=== PATIENT | female | born 1940 | race Caucasian/White ===

== ENCOUNTER 2019-10-19 13:54 | Inpatient (IN) | payer MEDICARE ==
[2019-10-19] MEDS ORDERED: SODIUM CHLORIDE 0.9% 500 ML 500 ML IV STA (14:29)
[2019-10-19 14:57] LABS: Potassium 3.5 mmol/L (3.5-5.1)
[2019-10-19 14:58] LABS: Albumin 2.9 g/dL (3.5-5.0); Calcium 8.5 mg/dL (8.4-10.2); Total Bilirubin 0.7 mg/dL (0.2-1.3); Total Protein 6.2 g/dL (6.3-8.2)
[2019-10-19 14:59] LABS: Anisocytosis Slight; Basophils # (A) 0.1 k/uL (0-0.2); Basophils % (A) 0 %; Eosinophils # (A) 0.7 k/uL (0-0.7); Eosinophils % (A) 3 %; HCT 28.5 % (34.0-46.0); HGB 8.9 gm/dL (11.4-16.0); Hypochromasia Slight; Lymphocytes # (A) 1.7 k/uL (1.0-4.8); Lymphocytes % (A) 8 %; MCH 26.1 pg (25.0-35.0); MCHC 31.1 g/dL (31.0-37.0); Mean Platelet Volume 7.4; Monocytes # (A) 0.7 k/uL (0-1.0); Monocytes % (A) 3 %; Neutrophils # (A) 17.9 k/uL (1.3-7.7); Neutrophils % (A) 84 %; Platelet Count 852 k/uL (150-450); RBC 3.39 m/uL (3.80-5.40); RDW 16.9 % (11.5-15.5); WBC 21.2 k/uL (3.8-10.6)
--- NOTE | 2019-10-19 15:06 | ED ---
General Adult HPI - General Source: patient, RN notes reviewed Mode of arrival: ambulatory Limitations: no limitations <Magan Vincent - Last Filed: 10/19/19 16:39> <Flakito Stein - Last Filed: 10/19/19 17:12> - General Chief complaint: Recheck/Abnormal Lab/Rx Stated complaint: Elevated White Blood Cells - Sent by Urgent Care Time Seen by Provider: 10/19/19 14:10 - History of Present Illness Initial comments: 79-year-old female presents to the emergency room for elevated white blood cell count. Patient reports that she was getting eye surgery couple months ago and was told her blood pressure was high. She was told she needed to see a doctor for this. Patient had not seen a doctor in 50 years so went to urgent care. She had blood work done about 3 months ago that was reportedly normal. Patient went back yesterday to check her blood pressure after starting lisinopril. Patient reports that she had blood work done because she had not had an appetite. It was found that her white blood cell count was 31. Patient also reports her hemoglobin was 8.9. According to the urgent care her blood work was normal 3 months ago. Hemoglobin was 14. Patient denies any hematochezia, melena, or hematemesis. States she does not have any weakness. Her only symptom is decreased appetite.Patient has no other complaints at this time including shortness of breath, chest pain, abdominal pain, nausea or vomiting, headache, or visual changes. (Magan Vincent) - Related Data Allergies Allergy/AdvReac Type Severity Reaction Status Date / Time No Known Allergies Allergy Verified 10/19/19 14:06 Review of Systems ROS Other: All systems not noted in ROS Statement are negative. <Magan Vincent - Last Filed: 10/19/19 16:39> ROS Other: All systems not noted in ROS Statement are negative. <Flakito Stein - Last Filed: 10/19/19 17:12> ROS Statement: Those systems with pertinent positive or pertinent negative responses have been documented in the HPI. Past Medical History Past Medical History: Hypertension History of Any Multi-Drug Resistant Organisms: None Reported Past Surgical History: No Surgical Hx Reported Smoking Status: Never smoker Past Alcohol Use History: None Reported Past Drug Use History: None Reported <Magan Vincent - Last Filed: 10/19/19 16:39> General Exam Limitations: no limitations General appearance: alert, in no apparent distress Head exam: Present: atraumatic, normocephalic, normal inspection Eye exam: Present: normal appearance, PERRL, EOMI. Absent: scleral icterus, conjunctival injection, periorbital swelling ENT exam: Present: normal exam, mucous membranes moist Neck exam: Present: normal inspection, full ROM. Absent: tenderness, meningismus, lymphadenopathy Respiratory exam: Present: normal lung sounds bilaterally. Absent: respiratory distress, wheezes, rales, rhonchi, stridor Cardiovascular Exam: Present: regular rate, normal rhythm, normal heart sounds. Absent: systolic murmur, diastolic murmur, rubs, gallop, clicks GI/Abdominal exam: Present: soft, normal bowel sounds. Absent: distended, tenderness, guarding, rebound, rigid Neurological exam: Present: alert <Magan Vincent - Last Filed: 10/19/19 16:39> Course <Flakito Stein - Last Filed: 10/19/19 17:12> Vital Signs 10/19/19 10/19/19 10/19/19 13:59 15:02 15:37 Temperature 98.6 F Pulse Rate 62 114 H Respiratory 16 18 18 Rate Blood Pressure 119/65 115/65 127/70 O2 Sat by Pulse 97 97 Oximetry 10/19/19 17:07 Temperature Pulse Rate 114 H Respiratory 18 Rate Blood Pressure 127/66 O2 Sat by Pulse 97 Oximetry - Reevaluation(s) Reevaluation #1: 10/19/19 17:11 PA supervision: I personally evaluate the patient complaints of elevated white blood cell count also GI bleeding. Patient will be admitted she does demonstrate anemia. He does demonstrate evidence of problems. Patient be admitted Dr. Irvin service. (Flakito Stein) Medical Decision Making - Lab Data Result diagrams: 10/19/19 14:35 10/19/19 14:35 <Magan Vincent - Last Filed: 10/19/19 16:39> - Lab Data Result diagrams: 10/19/19 14:35 10/19/19 14:35 <Flakito Stein - Last Filed: 10/19/19 17:12> - Medical Decision Making GI bleed, anemia, leukocytosis, lactic acidosis, dehydration Vitals are stable. CBC does show evidence of leukocytosis with a left shift. Blood culture pending. However chest x-ray and urinalysis are unremarkable. Patient does not have any abdominal pain nausea vomiting or diarrhea. Likely acidosis of 3.8 however this is likely related to dehydration as well given BUN to creatinine ratio is elevated above 20. Patient was gently rehydrated given a cute anemia of 8.9. Her son verbally reports that her hemoglobin was 14 3 months ago. Occult blood is positive. Patient does not have any abdominal tenderness. Patient will be admitted with GI consultation. Laboratory evaluation will be repeated. (Magan Vincent) - Lab Data Lab Results 10/19/19 10/19/19 10/19/19 Range/Units 14:35 14:35 14:35 WBC 21.2 H (3.8-10.6) k/uL RBC 3.39 L (3.80-5.40) m/uL Hgb 8.9 L (11.4-16.0) gm/dL Hct 28.5 L (34.0-46.0) % MCV 84.0 (80.0-100.0) fL MCH 26.1 (25.0-35.0) pg MCHC 31.1 (31.0-37.0) g/dL RDW 16.9 H (11.5-15.5) % Plt Count 852 H (150-450) k/uL Neutrophils % 84 % Lymphocytes % 8 % Monocytes % 3 % Eosinophils % 3 % Basophils % 0 % Neutrophils # 17.9 H (1.3-7.7) k/uL Lymphocytes # 1.7 (1.0-4.8) k/uL Monocytes # 0.7 (0-1.0) k/uL Eosinophils # 0.7 (0-0.7) k/uL Basophils # 0.1 (0-0.2) k/uL Hypochromasia Slight Anisocytosis Slight Sodium 131 L (137-145) mmol/L Potassium 3.5 (3.5-5.1) mmol/L Chloride 95 L (98-107) mmol/L Carbon Dioxide 24 (22-30) mmol/L Anion Gap 12 mmol/L BUN 21 H (7-17) mg/dL Creatinine 0.78 (0.52-1.04) mg/dL Est GFR (CKD-EPI)AfAm 85 (>60 ml/min/1.73 sqM) Est GFR (CKD-EPI)NonAf 74 (>60 ml/min/1.73 sqM) Glucose 183 H (74-99) mg/dL Lactic Ac Sepsis Rflx Plasma Lactic Acid Thomas (0.7-2.0) mmol/L Calcium 8.5 (8.4-10.2) mg/dL Total Bilirubin 0.7 (0.2-1.3) mg/dL AST 29 (14-36) U/L ALT 16 (4-34) U/L Alkaline Phosphatase 181 H (38-126) U/L Total Protein 6.2 L (6.3-8.2) g/dL Albumin 2.9 L (3.5-5.0) g/dL Lipase 75 (23-300) U/L Urine Color Yellow Urine Appearance Clear (Clear) Urine pH 5.5 (5.0-8.0) Ur Specific [place] 1.017 (1.001-1.035) Urine Protein Trace H (Negative) Urine Glucose (UA) Negative (Negative) Urine Ketones Negative (Negative) Urine Blood Moderate H (Negative) Urine Nitrite Negative (Negative) Urine Bilirubin Negative (Negative) Urine Urobilinogen 6.0 (<2.0) mg/dL Ur Leukocyte Esterase Moderate H (Negative) Urine RBC 7 H (0-5) /hpf Urine WBC 11 H (0-5) /hpf Ur Squamous Epith Cells <1 (0-4) /hpf Amorphous Sediment Rare H (None) /hpf Urine Bacteria Rare H (None) /hpf Hyaline Casts 90 H (0-2) /lpf Urine Mucus Occasional H (None) /hpf Stool Occult Blood (Negative) 10/19/19 10/19/19 10/19/19 Range/Units 14:35 14:38 15:06 WBC (3.8-10.6) k/uL RBC (3.80-5.40) m/uL Hgb (11.4-16.0) gm/dL Hct (34.0-46.0) % MCV (80.0-100.0) fL MCH (25.0-35.0) pg MCHC (31.0-37.0) g/dL RDW (11.5-15.5) % Plt Count (150-450) k/uL Neutrophils % % Lymphocytes % % Monocytes % % Eosinophils % % Basophils % % Neutrophils # (1.3-7.7) k/uL Lymphocytes # (1.0-4.8) k/uL Monocytes # (0-1.0) k/uL Eosinophils # (0-0.7) k/uL Basophils # (0-0.2) k/uL Hypochromasia Anisocytosis Sodium (137-145) mmol/L Potassium (3.5-5.1) mmol/L Chloride (98-107) mmol/L Carbon Dioxide (22-30) mmol/L Anion Gap mmol/L BUN (7-17) mg/dL Creatinine (0.52-1.04) mg/dL Est GFR (CKD-EPI)AfAm (>60 ml/min/1.73 sqM) Est GFR (CKD-EPI)NonAf (>60 ml/min/1.73 sqM) Glucose (74-99) mg/dL Lactic Ac Sepsis Rflx Y Plasma Lactic Acid Thomas 3.8 H* (0.7-2.0) mmol/L Calcium (8.4-10.2) mg/dL Total Bilirubin (0.2-1.3) mg/dL AST (14-36) U/L ALT (4-34) U/L Alkaline Phosphatase (38-126) U/L Total Protein (6.3-8.2) g/dL Albumin (3.5-5.0) g/dL Lipase (23-300) U/L Urine Color Urine Appearance (Clear) Urine pH (5.0-8.0) Ur Specific [place] (1.001-1.035) Urine Protein (Negative) Urine Glucose (UA) (Negative) Urine Ketones (Negative) Urine Blood (Negative) Urine Nitrite (Negative) Urine Bilirubin (Negative) Urine Urobilinogen (<2.0) mg/dL Ur Leukocyte Esterase (Negative) Urine RBC (0-5) /hpf Urine WBC (0-5) /hpf Ur Squamous Epith Cells (0-4) /hpf Amorphous Sediment (None) /hpf Urine Bacteria (None) /hpf Hyaline Casts (0-2) /lpf Urine Mucus (None) /hpf Stool Occult Blood Positive H (Negative) Disposition Is patient prescribed a controlled substance at d/c from ED?: No Time of Disposition: 16:44 <Magan Vincent - Last Filed: 10/19/19 16:39> <Flakito Stein - Last Filed: 10/19/19 17:12> Clinical Impression: GI bleed, Anemia, Leukocytosis, Lactic acidosis Disposition: ADMITTED IP TO THIS HOSP Referrals: None,Stated [Primary Care Provider] - 1-2 days
--- NOTE | 2019-10-19 15:27 | XR ---
EXAMINATION TYPE: XR chest 2V DATE OF EXAM: 10/19/2019 COMPARISON: NONE TECHNIQUE: PA and lateral views submitted. HISTORY: Leukocytosis FINDINGS: The lungs are clear and there is no pneumothorax, pleural effusion, or focal pneumonia. There is hy perinflation. Degenerative change of the spine. No overt failure. Sclerosis involving the glenoid on the right is likely post arthritic. IMPRESSION: 1. No acute process. Correlate for COPD.
[2019-10-19 16:17] LABS: Amorphous Sediment,Urine Rare /hpf; Appearance,Urine Clear (Clear); Bacteria,Urine Rare /hpf; Bilirubin,Urine Negative (Negative); Blood,Urine Moderate (Negative); Color,Urine Yellow; Glucose,Urine (UA) Negative (Negative); Hyaline Casts,Urine 90 /lpf (0-2); Ketones,Urine Negative (Negative); Leukocyte Esterase,Urine Moderate (Negative); Mucus,Urine Occasional /hpf; Nitrite,Urine Negative (Negative); PH, Urine 5.5 (5.0-8.0); Protein,Urine Trace (Negative); RBC,Urine 7 /hpf (0-5); Specific Gravity,Urine 1.017 (1.001-1.035); Squamous Epithelial Cell,Urine <1 /hpf (0-4); WBC,Urine 11 /hpf (0-5)
[2019-10-19] MEDS ORDERED: SODIUM CHLORIDE 0.9% 1,000 ML IV STA (16:21)
[2019-10-19] MEDS ORDERED: ONDANSETRON 4 MG/2 ML VIAL IVP PRN (16:40)
[2019-10-19] MEDS ORDERED: NALOXONE 0.4 MG/ML 1 ML VIAL IV PRN (16:40)
[2019-10-19] MEDS: SODIUM CHLORIDE 0.9% 1,000 ML IV SCH (17:06)
[2019-10-19 18:16] LABS: Anisocytosis Slight; Basophils % (A) 0 %; Eosinophils # (A) 0.6 k/uL (0-0.7); Eosinophils % (A) 3 %; HCT 26.8 % (34.0-46.0); HGB 8.2 gm/dL (11.4-16.0); Hypochromasia Slight; Lymphocytes # (A) 1.6 k/uL (1.0-4.8); Lymphocytes % (A) 8 %; MCH 25.7 pg (25.0-35.0); MCHC 30.5 g/dL (31.0-37.0); MCV 84.2 fL (80.0-100.0); Mean Platelet Volume 7.9; Monocytes # (A) 0.8 k/uL (0-1.0); Monocytes % (A) 4 %; Neutrophils # (A) 16.4 k/uL (1.3-7.7); Neutrophils % (A) 84 %; Platelet Count 769 k/uL (150-450); RBC 3.19 m/uL (3.80-5.40); RDW 16.9 % (11.5-15.5); WBC 19.7 k/uL (3.8-10.6)
--- NOTE | 2019-10-19 19:04 | P.HPIM ---
History of Present Illness H&P Date: 10/19/19 79-year-old female with PMH of hypertension presents the ED for abnormal labs. Patient states that she was getting her blood pressure checked at her PCPs clinic when she was sent here for abnormal blood work. She had a hemoglobin that had suddenly dropped from baseline and leukocytosis in the 30,000s. Patient denies any complaints. She denies any headache, lower extremity edema, nausea vomiting, fever chills, cough, chest pain, shortness of breath, palpitations, changes in urination or bowel habits. No changes in appetite or weight. She denies any dizziness, numbness/weakness lasting of the extremities. No dysuria. No diarrhea. No abdominal pain. In the ED, her vital signs were stable except for heart rate of 114. Chest x-ray was negative. CBC showed leukocytosis of 19.7 and hemoglobin of 8.2. Platelet count was 769. CMP showed sodium of 131, chloride of 95, BUN of 21, glucose of 183. Lactic acid was 3.8. Alkaline phosphatase of 181. Stool for occult blood was positive. Urinalysis showed moderate blood, moderate leukocyte esterase. Patient is admitted for anemia, GI evaluation and leukocytosis of unknown significance. Review of Systems Pertinent positives and negatives as discussed in HPI, a complete review of systems was performed and all other systems are negative. Past Medical History Past Medical History: Hypertension History of Any Multi-Drug Resistant Organisms: None Reported Past Surgical History: No Surgical Hx Reported Smoking Status: Never smoker Past Alcohol Use History: None Reported Past Drug Use History: None Reported Medications and Allergies Home Medications Medication Instructions Recorded Confirmed Type Metoprolol Tartrate 25 mg PO BID 10/19/19 10/19/19 History Multivitamins, Thera [Multivitamin 1 tab PO DAILY 10/19/19 10/19/19 History (formulary)] hydroCHLOROthiazide 25 mg PO DAILY 10/19/19 10/19/19 History lisinopriL 20 mg PO DAILY 10/19/19 10/19/19 History Allergies Allergy/AdvReac Type Severity Reaction Status Date / Time No Known Allergies Allergy Verified 10/19/19 17:29 Physical Exam Vitals: Vital Signs Temp Pulse Resp BP Pulse Ox 10/19/19 18:28 98.6 F 114 H 18 127/66 97 10/19/19 17:07 114 H 18 127/66 97 10/19/19 15:37 18 127/70 10/19/19 15:02 114 H 18 115/65 97 10/19/19 13:59 98.6 F 62 16 119/65 97 Intake and Output 10/19/19 10/19/19 10/19/19 06:59 14:59 22:59 Other: Weight 58.967 kg General: [non toxic], [no distress], [appears at stated age] Derm: [warm], [dry] Head: [atraumatic], [normocephalic], [symmetric] Eyes: [EOMI], [no lid lag], [anicteric sclera] Mouth: [no lip lesion], [mucus membranes moist] Cardiovascular: [S1S2 reg], [no murmur], [positive posterior tibial pulse bilateral], Lungs: [CTA bilateral], [no rhonchi, no rales] , [no accessory muscle use] Abdominal: [soft], [ nontender to palpation], [no guarding], [no appreciable organomegaly] Ext: [no gross muscle atrophy], [no edema], [no contractures] Neuro: [ CN II-XI grossly intact], [no focal neuro deficits] Psych: [Alert], [oriented], [appropriate affect] Results CBC & Chem 7: 10/19/19 16:56 10/19/19 14:35 Labs: Abnormal Lab Results - Last 24 Hours (Table) 10/19/19 10/19/19 10/19/19 Range/Units 14:35 14:35 14:35 WBC 21.2 H (3.8-10.6) k/uL RBC 3.39 L (3.80-5.40) m/uL Hgb 8.9 L (11.4-16.0) gm/dL Hct 28.5 L (34.0-46.0) % MCHC (31.0-37.0) g/dL RDW 16.9 H (11.5-15.5) % Plt Count 852 H (150-450) k/uL Neutrophils # 17.9 H (1.3-7.7) k/uL Sodium 131 L (137-145) mmol/L Chloride 95 L (98-107) mmol/L BUN 21 H (7-17) mg/dL Glucose 183 H (74-99) mg/dL Plasma Lactic Acid Thomas (0.7-2.0) mmol/L Alkaline Phosphatase 181 H (38-126) U/L Total Protein 6.2 L (6.3-8.2) g/dL Albumin 2.9 L (3.5-5.0) g/dL Urine Protein Trace H (Negative) Urine Blood Moderate H (Negative) Ur Leukocyte Esterase Moderate H (Negative) Urine RBC 7 H (0-5) /hpf Urine WBC 11 H (0-5) /hpf Amorphous Sediment Rare H (None) /hpf Urine Bacteria Rare H (None) /hpf Hyaline Casts 90 H (0-2) /lpf Urine Mucus Occasional H (None) /hpf Stool Occult Blood (Negative) 10/19/19 10/19/19 10/19/19 Range/Units 14:35 14:38 16:56 WBC 19.7 H (3.8-10.6) k/uL RBC 3.19 L (3.80-5.40) m/uL Hgb 8.2 L (11.4-16.0) gm/dL Hct 26.8 L (34.0-46.0) % MCHC 30.5 L (31.0-37.0) g/dL RDW 16.9 H (11.5-15.5) % Plt Count 769 H (150-450) k/uL Neutrophils # 16.4 H (1.3-7.7) k/uL Sodium (137-145) mmol/L Chloride (98-107) mmol/L BUN (7-17) mg/dL Glucose (74-99) mg/dL Plasma Lactic Acid Thomas 3.8 H* (0.7-2.0) mmol/L Alkaline Phosphatase (38-126) U/L Total Protein (6.3-8.2) g/dL Albumin (3.5-5.0) g/dL Urine Protein (Negative) Urine Blood (Negative) Ur Leukocyte Esterase (Negative) Urine RBC (0-5) /hpf Urine WBC (0-5) /hpf Amorphous Sediment (None) /hpf Urine Bacteria (None) /hpf Hyaline Casts (0-2) /lpf Urine Mucus (None) /hpf Stool Occult Blood Positive H (Negative) 10/19/19 Range/Units Unknown WBC (3.8-10.6) k/uL RBC (3.80-5.40) m/uL Hgb (11.4-16.0) gm/dL Hct (34.0-46.0) % MCHC (31.0-37.0) g/dL RDW (11.5-15.5) % Plt Count (150-450) k/uL Neutrophils # (1.3-7.7) k/uL Sodium (137-145) mmol/L Chloride (98-107) mmol/L BUN (7-17) mg/dL Glucose (74-99) mg/dL Plasma Lactic Acid Thomas 3.8 H* (0.7-2.0) mmol/L Alkaline Phosphatase (38-126) U/L Total Protein (6.3-8.2) g/dL Albumin (3.5-5.0) g/dL Urine Protein (Negative) Urine Blood (Negative) Ur Leukocyte Esterase (Negative) Urine RBC (0-5) /hpf Urine WBC (0-5) /hpf Amorphous Sediment (None) /hpf Urine Bacteria (None) /hpf Hyaline Casts (0-2) /lpf Urine Mucus (None) /hpf Stool Occult Blood (Negative) Assessment and Plan Assessment: Anemia with positive stool occult blood SIRS Lactic acidosis Leukocytosis Hypochloremic hyponatremia Abnormal urinalysis Hypertension Patient's hemoglobin is 8.2 with positive stool for occult blood. Plans: Consult gastroenterology. Repeat CBC tomorrow morning. Nothing by mouth after midnight. Patient meet SIRS criteria. She is tachycardic. She has a leukocytosis. No known source of infection. Chest x-ray is negative. Urinalysis with moderate leukocyte esterase. Plans: Obtain blood and urine culture. Hold antibiotics for now. Repeat CBC tomorrow morning. Follow hematology consultation. Telemetry monitoring. Start normal saline at 100 mL/h. Plans: Repeat lactic acid until negative. Unknown significance. No obvious source of infection. Plans: Follow hematology consultation. Likely due to dehydration. Plans: Hydration as above. Patient is asymptomatic. Plans: Nothing further to do. BP 134/71. Plans: Hold antihypertensive medication at this time. Reintroduce meds as patient tolerates. DVT prophylaxis: [SCD] Discussed with: [Patient and son] Anticipated discharge: [2-3 days] Anticipated discharge place: [Home] A total of [45] minutes was spent on the care of this complex patient more than 50% of the time was spent in counseling and care coordination. Patient names her son decision maker if she can make decisions for herself. Patient would like to be no code.
[2019-10-19] MEDS: ACETAMINOPHEN TAB 325 MG TAB PO PRN (20:46)
[2019-10-19 21:22] LABS: Anisocytosis Slight; Basophils # (A) 0.1 k/uL (0-0.2); Basophils % (A) 0 %; Eosinophils # (A) 0.9 k/uL (0-0.7); Eosinophils % (A) 4 %; HCT 25.9 % (34.0-46.0); HGB 7.9 gm/dL (11.4-16.0); Hypochromasia Marked; Lymphocytes # (A) 2.5 k/uL (1.0-4.8); Lymphocytes % (A) 13 %; MCH 26.2 pg (25.0-35.0); MCHC 30.6 g/dL (31.0-37.0); MCV 85.5 fL (80.0-100.0); Mean Platelet Volume 6.9; Monocytes # (A) 0.7 k/uL (0-1.0); Monocytes % (A) 4 %; Neutrophils # (A) 15.9 k/uL (1.3-7.7); Neutrophils % (A) 79 %; Platelet Count 770 k/uL (150-450); RBC 3.03 m/uL (3.80-5.40); RDW 16.7 % (11.5-15.5); WBC 20.3 k/uL (3.8-10.6)
[2019-10-20] MEDS: SODIUM CHLORIDE 0.9% 1,000 ML IV SCH (01:29)
[2019-10-20 06:50] LABS: ALT 15 U/L (4-34); AST 30 U/L (14-36); African American GFR (CKD) >90 (>60 ml/min/1.73 sqM); Albumin 2.1 g/dL (3.5-5.0); Alkaline Phosphatase 129 U/L (38-126); Anion Gap 7 mmol/L; Blood Urea Nitrogen 16 mg/dL (7-17); Calcium 7.7 mg/dL (8.4-10.2); Carbon Dioxide 23 mmol/L (22-30); Chloride 102 mmol/L (98-107); Glucose 100 mg/dL (74-99); Non-African American GFR(CKD) 84 (>60 ml/min/1.73 sqM); Potassium 3.1 mmol/L (3.5-5.1); Sodium 132 mmol/L (137-145); Total Bilirubin 0.6 mg/dL (0.2-1.3); Total Protein 4.8 g/dL (6.3-8.2)
[2019-10-20 07:08] LABS: Anisocytosis Slight; HCT 23.7 % (34.0-46.0); HGB 7.2 gm/dL (11.4-16.0); Hypochromasia Marked; MCH 26.2 pg (25.0-35.0); MCHC 30.3 g/dL (31.0-37.0); MCV 86.4 fL (80.0-100.0); Mean Platelet Volume 6.9; Platelet Count 675 k/uL (150-450); RBC 2.75 m/uL (3.80-5.40); RDW 16.6 % (11.5-15.5); WBC 18.6 k/uL (3.8-10.6)
[2019-10-20 08:10] LABS: Eosinophils # (M) 0.74 k/uL (0-0.7); Neutrophils # (M) 13.95 k/uL (1.3-7.7); Neutrophils % (M) 75 %; Nucleated Red Blood Cells 0 /100 WBC (0-0); Total Cells Counted 100
[2019-10-20] MEDS ORDERED: Potassium Replacement Protocol 1 EACH MISC MISCELLANE PRN ×2 (09:12→09:38)
[2019-10-20] MEDS: POTASSIUM CHLORIDE ER 20 MEQ TAB.ER PO SCH (09:49)
--- NOTE | 2019-10-20 10:21 | P.PN ---
Subjective Progress Note Date: 10/20/19 Patient was seen and examined. No acute events overnight. Patient with no complains. She denies any chest or shortness breath or palpitations. No nausea vomiting. No fever chills. Objective - Vital Signs Vital signs: Vital Signs Temp 97.9 F 10/20/19 08:00 Pulse 64 10/20/19 08:00 Resp 18 10/20/19 08:00 BP 122/74 10/20/19 08:00 Pulse Ox 97 10/20/19 08:00 Intake & Output 10/19/19 10/20/19 10/20/19 18:59 06:59 18:59 Intake Total 600 Balance 600 Weight 58.967 kg 57.5 kg Intake: Intake, IV Titration 600 Amount Sodium Chloride 0.9% 1, 600 000 ml @ 100 mls/hr IV . Q10H [facility] Rx#:[id number] Other: Voiding Method Toilet # Voids 1 1 - Exam General: [non toxic], [no distress], [appears at stated age] Derm: [warm], [dry] Head: [atraumatic], [normocephalic], [symmetric] Eyes: [EOMI], [no lid lag], [anicteric sclera] Mouth: [no lip lesion], [mucus membranes moist] Cardiovascular: [S1S2 reg], [no murmur], [positive posterior tibial pulse bilateral], Lungs: [CTA bilateral], [no rhonchi, no rales] , [no accessory muscle use] Abdominal: [soft], [ nontender to palpation], [no guarding], [no appreciable organomegaly] Ext: [no gross muscle atrophy], [no edema], [no contractures] Neuro: [no focal neuro deficits] Psych: [Alert], [oriented], [appropriate affect] - Labs CBC & Chem 7: 10/20/19 06:09 10/20/19 06:09 Labs: Abnormal Lab Results - Last 24 Hours (Table) 10/19/19 10/19/19 10/19/19 Range/Units 14:35 14:35 14:35 WBC 21.2 H (3.8-10.6) k/uL RBC 3.39 L (3.80-5.40) m/uL Hgb 8.9 L (11.4-16.0) gm/dL Hct 28.5 L (34.0-46.0) % MCHC (31.0-37.0) g/dL RDW 16.9 H (11.5-15.5) % Plt Count 852 H (150-450) k/uL Neutrophils # 17.9 H (1.3-7.7) k/uL Neutrophils # (Manual) (1.3-7.7) k/uL Monocytes # (Manual) (0-1.0) k/uL Eosinophils # (0-0.7) k/uL Eosinophils # (Manual) (0-0.7) k/uL Sodium 131 L (137-145) mmol/L Potassium (3.5-5.1) mmol/L Chloride 95 L (98-107) mmol/L BUN 21 H (7-17) mg/dL Glucose 183 H (74-99) mg/dL Plasma Lactic Acid Thomas (0.7-2.0) mmol/L Calcium (8.4-10.2) mg/dL Alkaline Phosphatase 181 H (38-126) U/L Total Protein 6.2 L (6.3-8.2) g/dL Albumin 2.9 L (3.5-5.0) g/dL Urine Protein Trace H (Negative) Urine Blood Moderate H (Negative) Ur Leukocyte Esterase Moderate H (Negative) Urine RBC 7 H (0-5) /hpf Urine WBC 11 H (0-5) /hpf Amorphous Sediment Rare H (None) /hpf Urine Bacteria Rare H (None) /hpf Hyaline Casts 90 H (0-2) /lpf Urine Mucus Occasional H (None) /hpf Stool Occult Blood (Negative) 10/19/19 10/19/19 10/19/19 Range/Units 14:35 14:38 16:56 WBC 19.7 H (3.8-10.6) k/uL RBC 3.19 L (3.80-5.40) m/uL Hgb 8.2 L (11.4-16.0) gm/dL Hct 26.8 L (34.0-46.0) % MCHC 30.5 L (31.0-37.0) g/dL RDW 16.9 H (11.5-15.5) % Plt Count 769 H (150-450) k/uL Neutrophils # 16.4 H (1.3-7.7) k/uL Neutrophils # (Manual) (1.3-7.7) k/uL Monocytes # (Manual) (0-1.0) k/uL Eosinophils # (0-0.7) k/uL Eosinophils # (Manual) (0-0.7) k/uL Sodium (137-145) mmol/L Potassium (3.5-5.1) mmol/L Chloride (98-107) mmol/L BUN (7-17) mg/dL Glucose (74-99) mg/dL Plasma Lactic Acid Thomas 3.8 H* (0.7-2.0) mmol/L Calcium (8.4-10.2) mg/dL Alkaline Phosphatase (38-126) U/L Total Protein (6.3-8.2) g/dL Albumin (3.5-5.0) g/dL Urine Protein (Negative) Urine Blood (Negative) Ur Leukocyte Esterase (Negative) Urine RBC (0-5) /hpf Urine WBC (0-5) /hpf Amorphous Sediment (None) /hpf Urine Bacteria (None) /hpf Hyaline Casts (0-2) /lpf Urine Mucus (None) /hpf Stool Occult Blood Positive H (Negative) 10/19/19 10/19/19 10/20/19 Range/Units 17:13 21:11 06:09 WBC 20.3 H 18.6 H (3.8-10.6) k/uL RBC 3.03 L 2.75 L (3.80-5.40) m/uL Hgb 7.9 L 7.2 L (11.4-16.0) gm/dL Hct 25.9 L 23.7 L (34.0-46.0) % MCHC 30.6 L 30.3 L (31.0-37.0) g/dL RDW 16.7 H 16.6 H (11.5-15.5) % Plt Count 770 H 675 H (150-450) k/uL Neutrophils # 15.9 H (1.3-7.7) k/uL Neutrophils # (Manual) 13.95 H (1.3-7.7) k/uL Monocytes # (Manual) 1.30 H (0-1.0) k/uL Eosinophils # 0.9 H (0-0.7) k/uL Eosinophils # (Manual) 0.74 H (0-0.7) k/uL Sodium (137-145) mmol/L Potassium (3.5-5.1) mmol/L Chloride (98-107) mmol/L BUN (7-17) mg/dL Glucose (74-99) mg/dL Plasma Lactic Acid Thomas 3.8 H* (0.7-2.0) mmol/L Calcium (8.4-10.2) mg/dL Alkaline Phosphatase (38-126) U/L Total Protein (6.3-8.2) g/dL Albumin (3.5-5.0) g/dL Urine Protein (Negative) Urine Blood (Negative) Ur Leukocyte Esterase (Negative) Urine RBC (0-5) /hpf Urine WBC (0-5) /hpf Amorphous Sediment (None) /hpf Urine Bacteria (None) /hpf Hyaline Casts (0-2) /lpf Urine Mucus (None) /hpf Stool Occult Blood (Negative) 10/20/19 Range/Units 06:09 WBC (3.8-10.6) k/uL RBC (3.80-5.40) m/uL Hgb (11.4-16.0) gm/dL Hct (34.0-46.0) % MCHC (31.0-37.0) g/dL RDW (11.5-15.5) % Plt Count (150-450) k/uL Neutrophils # (1.3-7.7) k/uL Neutrophils # (Manual) (1.3-7.7) k/uL Monocytes # (Manual) (0-1.0) k/uL Eosinophils # (0-0.7) k/uL Eosinophils # (Manual) (0-0.7) k/uL Sodium 132 L (137-145) mmol/L Potassium 3.1 L (3.5-5.1) mmol/L Chloride (98-107) mmol/L BUN (7-17) mg/dL Glucose 100 H (74-99) mg/dL Plasma Lactic Acid Thomas (0.7-2.0) mmol/L Calcium 7.7 L (8.4-10.2) mg/dL Alkaline Phosphatase 129 H (38-126) U/L Total Protein 4.8 L (6.3-8.2) g/dL Albumin 2.1 L (3.5-5.0) g/dL Urine Protein (Negative) Urine Blood (Negative) Ur Leukocyte Esterase (Negative) Urine RBC (0-5) /hpf Urine WBC (0-5) /hpf Amorphous Sediment (None) /hpf Urine Bacteria (None) /hpf Hyaline Casts (0-2) /lpf Urine Mucus (None) /hpf Stool Occult Blood (Negative) Microbiology - Last 24 Hours (Table) 10/19/19 14:35 Urine Culture - Preliminary Urine,Voided Assessment and Plan Assessment: Anemia with positive stool occult blood Hypokalemia SIRS Leukocytosis Hyponatremia Abnormal urinalysis Hypertension Patient's hemoglobin is 8.2-7.2 with positive stool for occult blood. Plans: Consult gastroenterology. Repeat CBC tomorrow morning. Transfuse if Hg less than 7. Plans: Replace via protocol. Patient meet SIRS criteria. She was tachycardic (now resolved). She has a leukocytosis. No known source of infection. Chest x-ray is negative. Urinalysis with moderate leukocyte esterase. Plans: Obtain blood and urine culture. Hold antibiotics for now. Repeat CBC tomorrow morning. Follow hematology consultation. Telemetry monitoring. DC IVF. Unknown significance. No obvious source of infection. Plans: Follow hematology consultation. Improving with hydration. Plans: DC IVF and encourage hydration by mouth. Patient is asymptomatic. Plans: Nothing further to do. BP 122/74. Plans: Hold antihypertensive medication at this time. Reintroduce meds as patient tolerates. [Patient admitted for anemia, possible GI bleed. GI consult pending. Replacing potassium. Hematology consult pending for leukocytosis she is pending clinical improvement. Likely DC in 1-2 days.]
--- NOTE | 2019-10-20 12:17 | P.CONS ---
History of Present Illness - Reason for Consult Consult date: 10/20/19 Leukocytosis Requesting physician: Mitul Irvin - History of Present Illness Yaneth is a 79 year old female who presented to emergency at the direction of her PCP for "abnormal labs". On admission she was found to have increased WBC, mostly neutrophils, increased platelets and decreased hemoglobin. No documented pertinent history to show etiology of the same. She was sent for further evalu ation. On admission febrile at 100.7. Blood cultures, urinalysis and chest xray performed. No acute pneumonia, urine culture pending, stool for OB positive and GI has been consulted. She denies any changes in weight, no N/V/D/pain. She does appear dehydrated, potassium 3.1, sodium 130. ALk phos is increased. Past Medical History Past Medical History: Hypertension History of Any Multi-Drug Resistant Organisms: None Reported Past Surgical History: No Surgical Hx Reported Past Anesthesia/Blood Transfusion Reactions: No Reported Reaction Past Psychological History: No Psychological Hx Reported Smoking Status: Never smoker Past Alcohol Use History: None Reported Past Drug Use History: None Reported - Past Family History Son(s) Family Medical History: Hypertension Medications and Allergies Home Medications Medication Instructions Recorded Confirmed Type Metoprolol Tartrate 25 mg PO BID 10/19/19 10/19/19 History Multivitamins, Thera [Multivitamin 1 tab PO DAILY 10/19/19 10/19/19 History (formulary)] hydroCHLOROthiazide 25 mg PO DAILY 10/19/19 10/19/19 History lisinopriL 20 mg PO DAILY 10/19/19 10/19/19 History Allergies Allergy/AdvReac Type Severity Reaction Status Date / Time No Known Allergies Allergy Verified 10/19/19 17:29 Physical Exam Vitals: Vital Signs Temp Pulse Pulse Resp BP BP Pulse Ox 10/20/19 11:45 98.6 F 106 H 18 130/56 96 10/20/19 11:09 64 10/20/19 08:00 97.9 F 64 18 122/74 97 10/20/19 04:00 99.2 F 82 16 109/55 97 10/20/19 00:00 99.1 F 91 18 101/55 97 10/19/19 20:00 100.7 F H 103 H 18 144/65 97 10/19/19 18:44 18 134/71 100 10/19/19 18:28 98.6 F 114 H 18 127/66 97 10/19/19 17:07 114 H 18 127/66 97 10/19/19 15:37 18 127/70 10/19/19 15:02 114 H 18 115/65 97 10/19/19 13:59 98.6 F 62 16 119/65 97 Intake and Output 10/19/19 10/20/19 10/20/19 22:59 06:59 14:59 Intake Total 600 Balance 600 Intake: Intake, IV Titration 600 Amount Sodium Chloride 0.9% 1, 600 000 ml @ 100 mls/hr IV . Q10H [facility] Rx#:[id number] Other: Voiding Method Toilet # Voids 1 1 Weight 57.5 kg - Constitutional General appearance: cooperative, no acute distress - EENT Eyes: EOMI, poor dentition ENT: hard of hearing, NA/AT, normal oropharynx - Neck Neck: normal ROM - Respiratory Respiratory: bilateral: CTA - Cardiovascular Rhythm: regular - Gastrointestinal General gastrointestinal: normal bowel sounds, soft, tenderness - Integumentary Integumentary: pale - Neurologic Neurologic: CNII-XII intact - Musculoskeletal Musculoskeletal: generalized weakness, strength equal bilaterally - Psychiatric Psychiatric: A&O x's 3, appropriate affect, intact judgment & insight Results CBC & Chem 7: 10/20/19 06:09 10/20/19 06:09 Labs: Abnormal Lab Results - Last 24 Hours (Table) 10/19/19 10/19/19 10/19/19 Range/Units 14:35 14:35 14:35 WBC 21.2 H (3.8-10.6) k/uL RBC 3.39 L (3.80-5.40) m/uL Hgb 8.9 L (11.4-16.0) gm/dL Hct 28.5 L (34.0-46.0) % MCHC (31.0-37.0) g/dL RDW 16.9 H (11.5-15.5) % Plt Count 852 H (150-450) k/uL Neutrophils # 17.9 H (1.3-7.7) k/uL Neutrophils # (Manual) (1.3-7.7) k/uL Monocytes # (Manual) (0-1.0) k/uL Eosinophils # (0-0.7) k/uL Eosinophils # (Manual) (0-0.7) k/uL Sodium 131 L (137-145) mmol/L Potassium (3.5-5.1) mmol/L Chloride 95 L (98-107) mmol/L BUN 21 H (7-17) mg/dL Glucose 183 H (74-99) mg/dL Plasma Lactic Acid Thomas (0.7-2.0) mmol/L Calcium (8.4-10.2) mg/dL Alkaline Phosphatase 181 H (38-126) U/L Total Protein 6.2 L (6.3-8.2) g/dL Albumin 2.9 L (3.5-5.0) g/dL Urine Protein Trace H (Negative) Urine Blood Moderate H (Negative) Ur Leukocyte Esterase Moderate H (Negative) Urine RBC 7 H (0-5) /hpf Urine WBC 11 H (0-5) /hpf Amorphous Sediment Rare H (None) /hpf Urine Bacteria Rare H (None) /hpf Hyaline Casts 90 H (0-2) /lpf Urine Mucus Occasional H (None) /hpf Stool Occult Blood (Negative) 10/19/19 10/19/19 10/19/19 Range/Units 14:35 14:38 16:56 WBC 19.7 H (3.8-10.6) k/uL RBC 3.19 L (3.80-5.40) m/uL Hgb 8.2 L (11.4-16.0) gm/dL Hct 26.8 L (34.0-46.0) % MCHC 30.5 L (31.0-37.0) g/dL RDW 16.9 H (11.5-15.5) % Plt Count 769 H (150-450) k/uL Neutrophils # 16.4 H (1.3-7.7) k/uL Neutrophils # (Manual) (1.3-7.7) k/uL Monocytes # (Manual) (0-1.0) k/uL Eosinophils # (0-0.7) k/uL Eosinophils # (Manual) (0-0.7) k/uL Sodium (137-145) mmol/L Potassium (3.5-5.1) mmol/L Chloride (98-107) mmol/L BUN (7-17) mg/dL Glucose (74-99) mg/dL Plasma Lactic Acid Thomas 3.8 H* (0.7-2.0) mmol/L Calcium (8.4-10.2) mg/dL Alkaline Phosphatase (38-126) U/L Total Protein (6.3-8.2) g/dL Albumin (3.5-5.0) g/dL Urine Protein (Negative) Urine Blood (Negative) Ur Leukocyte Esterase (Negative) Urine RBC (0-5) /hpf Urine WBC (0-5) /hpf Amorphous Sediment (None) /hpf Urine Bacteria (None) /hpf Hyaline Casts (0-2) /lpf Urine Mucus (None) /hpf Stool Occult Blood Positive H (Negative) 10/19/19 10/19/19 10/20/19 Range/Units 17:13 21:11 06:09 WBC 20.3 H 18.6 H (3.8-10.6) k/uL RBC 3.03 L 2.75 L (3.80-5.40) m/uL Hgb 7.9 L 7.2 L (11.4-16.0) gm/dL Hct 25.9 L 23.7 L (34.0-46.0) % MCHC 30.6 L 30.3 L (31.0-37.0) g/dL RDW 16.7 H 16.6 H (11.5-15.5) % Plt Count 770 H 675 H (150-450) k/uL Neutrophils # 15.9 H (1.3-7.7) k/uL Neutrophils # (Manual) 13.95 H (1.3-7.7) k/uL Monocytes # (Manual) 1.30 H (0-1.0) k/uL Eosinophils # 0.9 H (0-0.7) k/uL Eosinophils # (Manual) 0.74 H (0-0.7) k/uL Sodium (137-145) mmol/L Potassium (3.5-5.1) mmol/L Chloride (98-107) mmol/L BUN (7-17) mg/dL Glucose (74-99) mg/dL Plasma Lactic Acid Thomas 3.8 H* (0.7-2.0) mmol/L Calcium (8.4-10.2) mg/dL Alkaline Phosphatase (38-126) U/L Total Protein (6.3-8.2) g/dL Albumin (3.5-5.0) g/dL Urine Protein (Negative) Urine Blood (Negative) Ur Leukocyte Esterase (Negative) Urine RBC (0-5) /hpf Urine WBC (0-5) /hpf Amorphous Sediment (None) /hpf Urine Bacteria (None) /hpf Hyaline Casts (0-2) /lpf Urine Mucus (None) /hpf Stool Occult Blood (Negative) 10/20/19 Range/Units 06:09 WBC (3.8-10.6) k/uL RBC (3.80-5.40) m/uL Hgb (11.4-16.0) gm/dL Hct (34.0-46.0) % MCHC (31.0-37.0) g/dL RDW (11.5-15.5) % Plt Count (150-450) k/uL Neutrophils # (1.3-7.7) k/uL Neutrophils # (Manual) (1.3-7.7) k/uL Monocytes # (Manual) (0-1.0) k/uL Eosinophils # (0-0.7) k/uL Eosinophils # (Manual) (0-0.7) k/uL Sodium 132 L (137-145) mmol/L Potassium 3.1 L (3.5-5.1) mmol/L Chloride (98-107) mmol/L BUN (7-17) mg/dL Glucose 100 H (74-99) mg/dL Plasma Lactic Acid Thomas (0.7-2.0) mmol/L Calcium 7.7 L (8.4-10.2) mg/dL Alkaline Phosphatase 129 H (38-126) U/L Total Protein 4.8 L (6.3-8.2) g/dL Albumin 2.1 L (3.5-5.0) g/dL Urine Protein (Negative) Urine Blood (Negative) Ur Leukocyte Esterase (Negative) Urine RBC (0-5) /hpf Urine WBC (0-5) /hpf Amorphous Sediment (None) /hpf Urine Bacteria (None) /hpf Hyaline Casts (0-2) /lpf Urine Mucus (None) /hpf Stool Occult Blood (Negative) Microbiology - Last 24 Hours (Table) 10/19/19 14:35 Urine Culture - Preliminary Urine,Voided Chest x-ray: report reviewed Assessment and Plan Plan: Assessment and Recommendations: 1. Febrile Illness: 2. Leukocytosis: - Appears reactive with mostly comprised of neutrophils - Related to number 1 3. Normocytic Hypochromic Anemia: - Full Anemia work-up ordered - GI plan for endoscopy on Tuesday
[2019-10-20 12:51] LABS: Amylase <30 U/L (30-110); LDH 432 U/L (313-618); Magnesium 1.8 mg/dL (1.6-2.3); Phosphorus 2.9 mg/dL (2.5-4.5); Uric Acid 7.9 mg/dL (3.7-7.4)
[2019-10-20 13:01] LABS: Reticulocyte % 2.4 % (0.5-2.0)
[2019-10-20] MEDS ORDERED: PEG 3350-NA SULF,BICARB,CL/KCL 4,000 ML BOTTLE PO ONE (16:00)
[2019-10-20] MEDS ORDERED: bisacodyL 5 MG TABLET.DR PO ONE (17:00)
[2019-10-20] MEDS: METOPROLOL TARTRATE 25 MG TAB PO SCH (17:36)
--- NOTE | 2019-10-20 19:56 | P.CONS ---
History of Present Illness - Reason for Consult Consult date: 10/20/19 anemia Requesting physician: Mitul Irvin - Chief Complaint abnormal labs - History of Present Illness 79-year-old female with medical history significant for hypertension who presented to the hospital for evaluation of abnormal labs and anemia. The patient denies any history of anemia except for during her with her son. She is not on any iron therapy at home. She denies any signs or symptoms of GI bleeding includingcoffee-ground emesis, hematemesis, melena or blood per rectum. She reports bowel movements at baseline are every other day and normal in color and caliber. No history of peptic ulcer disease. She denies any NSAID use. She is denying any abdominal pain at this time. She states that she has never had an EGD or colonoscopy in the past. Laboratory evaluation significant for WBC 18.6, hemoglobin7.2, platelet count 675,000, total bilirubin 0.6, alkaline phosphatase 129, AST 30 and ALT 15 with stool testing positive for occult blood. Review of Systems REVIEW OF SYSTEMS: CONSTITUTIONAL: Denies any fevers, chills, weight change or fatigue. CARDIOVASCULAR: Denies any chest pain, palpitations high or low blood pressures RESPIRATORY: Denies any shortness of breath, hemoptysis or cough. GENITOURINARY: No dysuria or hematuria, but blood noted on urinalysis. MUSCULOSKELETAL: No weakness reported. SKIN: Denies any new rashes or lesions, jaundice or pallor. PSYCHIATRIC: Denies any depression or anxiety. NEUROLOGY: Denies headache, denies any new focal deficits. EARS/NOSE/THROAT: No recent hearing change, congestion, nasal discharge or sore throat. EYES: No pain in eyes, discharge or change in vision. GASTROINTESTINAL: As per HPI. Past Medical History Past Medical History: Hypertension History of Any Multi-Drug Resistant Organisms: None Reported Past Surgical History: No Surgical Hx Reported Past Anesthesia/Blood Transfusion Reactions: No Reported Reaction Past Psychological History: No Psychological Hx Reported Smoking Status: Never smoker Past Alcohol Use History: None Reported Past Drug Use History: None Reported - Past Family History Son(s) Family Medical History: Hypertension Medications and Allergies Home Medications Medication Instructions Recorded Confirmed Type Metoprolol Tartrate 25 mg PO BID 10/19/19 10/19/19 History Multivitamins, Thera [Multivitamin 1 tab PO DAILY 10/19/19 10/19/19 History (formulary)] hydroCHLOROthiazide 25 mg PO DAILY 10/19/19 10/19/19 History lisinopriL 20 mg PO DAILY 10/19/19 10/19/19 History Allergies Allergy/AdvReac Type Severity Reaction Status Date / Time No Known Allergies Allergy Verified 10/19/19 17:29 Physical Exam Vitals: Vital Signs Temp Pulse Pulse Resp BP BP Pulse Ox 10/20/19 08:00 97.9 F 64 18 122/74 97 10/20/19 04:00 99.2 F 82 16 109/55 97 10/20/19 00:00 99.1 F 91 18 101/55 97 10/19/19 20:00 100.7 F H 103 H 18 144/65 97 10/19/19 18:44 18 134/71 100 10/19/19 18:28 98.6 F 114 H 18 127/66 97 10/19/19 17:07 114 H 18 127/66 97 10/19/19 15:37 18 127/70 10/19/19 15:02 114 H 18 115/65 97 10/19/19 13:59 98.6 F 62 16 119/65 97 Intake and Output 10/19/19 10/20/19 10/20/19 22:59 06:59 14:59 Intake Total 600 Balance 600 Intake: Intake, IV Titration 600 Amount Sodium Chloride 0.9% 1, 600 000 ml @ 100 mls/hr IV . Q10H [facility] Rx#:[id number] Other: Voiding Method Toilet # Voids 1 1 Weight 57.5 kg On physical examination, patient appears comfortable in no apparent distress. HEAD: Normocephalic, atraumatic. EYES: No scleral icterus. No conjunctival injection. MOUTH: No lesions, tongue midline. NECK: Trachea midline, no gross abnormalities. CHEST: decrease dairy [place] lung whiting. HEART: Regular rate and rhythm. ABDOMEN: Soft, thin and nontender to palpation. Bowel sounds are positive. No organomegaly. No guarding or rigidity. EXTREMITIES: No pedal edema. SKIN: No rashes, no jaundice. NEUROLOGIC: Alert and oriented x3. No focal deficits. Results CBC & Chem 7: 10/20/19 06:09 10/20/19 06:09 Labs: Abnormal Lab Results - Last 24 Hours (Table) 10/19/19 10/19/19 10/19/19 Range/Units 14:35 14:35 14:35 WBC 21.2 H (3.8-10.6) k/uL RBC 3.39 L (3.80-5.40) m/uL Hgb 8.9 L (11.4-16.0) gm/dL Hct 28.5 L (34.0-46.0) % MCHC (31.0-37.0) g/dL RDW 16.9 H (11.5-15.5) % Plt Count 852 H (150-450) k/uL Neutrophils # 17.9 H (1.3-7.7) k/uL Neutrophils # (Manual) (1.3-7.7) k/uL Monocytes # (Manual) (0-1.0) k/uL Eosinophils # (0-0.7) k/uL Eosinophils # (Manual) (0-0.7) k/uL Sodium 131 L (137-145) mmol/L Potassium (3.5-5.1) mmol/L Chloride 95 L (98-107) mmol/L BUN 21 H (7-17) mg/dL Glucose 183 H (74-99) mg/dL Plasma Lactic Acid Thomas (0.7-2.0) mmol/L Calcium (8.4-10.2) mg/dL Alkaline Phosphatase 181 H (38-126) U/L Total Protein 6.2 L (6.3-8.2) g/dL Albumin 2.9 L (3.5-5.0) g/dL Urine Protein Trace H (Negative) Urine Blood Moderate H (Negative) Ur Leukocyte Esterase Moderate H (Negative) Urine RBC 7 H (0-5) /hpf Urine WBC 11 H (0-5) /hpf Amorphous Sediment Rare H (None) /hpf Urine Bacteria Rare H (None) /hpf Hyaline Casts 90 H (0-2) /lpf Urine Mucus Occasional H (None) /hpf Stool Occult Blood (Negative) 10/19/19 10/19/19 10/19/19 Range/Units 14:35 14:38 16:56 WBC 19.7 H (3.8-10.6) k/uL RBC 3.19 L (3.80-5.40) m/uL Hgb 8.2 L (11.4-16.0) gm/dL Hct 26.8 L (34.0-46.0) % MCHC 30.5 L (31.0-37.0) g/dL RDW 16.9 H (11.5-15.5) % Plt Count 769 H (150-450) k/uL Neutrophils # 16.4 H (1.3-7.7) k/uL Neutrophils # (Manual) (1.3-7.7) k/uL Monocytes # (Manual) (0-1.0) k/uL Eosinophils # (0-0.7) k/uL Eosinophils # (Manual) (0-0.7) k/uL Sodium (137-145) mmol/L Potassium (3.5-5.1) mmol/L Chloride (98-107) mmol/L BUN (7-17) mg/dL Glucose (74-99) mg/dL Plasma Lactic Acid Thomas 3.8 H* (0.7-2.0) mmol/L Calcium (8.4-10.2) mg/dL Alkaline Phosphatase (38-126) U/L Total Protein (6.3-8.2) g/dL Albumin (3.5-5.0) g/dL Urine Protein (Negative) Urine Blood (Negative) Ur Leukocyte Esterase (Negative) Urine RBC (0-5) /hpf Urine WBC (0-5) /hpf Amorphous Sediment (None) /hpf Urine Bacteria (None) /hpf Hyaline Casts (0-2) /lpf Urine Mucus (None) /hpf Stool Occult Blood Positive H (Negative) 10/19/19 10/19/19 10/20/19 Range/Units 17:13 21:11 06:09 WBC 20.3 H 18.6 H (3.8-10.6) k/uL RBC 3.03 L 2.75 L (3.80-5.40) m/uL Hgb 7.9 L 7.2 L (11.4-16.0) gm/dL Hct 25.9 L 23.7 L (34.0-46.0) % MCHC 30.6 L 30.3 L (31.0-37.0) g/dL RDW 16.7 H 16.6 H (11.5-15.5) % Plt Count 770 H 675 H (150-450) k/uL Neutrophils # 15.9 H (1.3-7.7) k/uL Neutrophils # (Manual) 13.95 H (1.3-7.7) k/uL Monocytes # (Manual) 1.30 H (0-1.0) k/uL Eosinophils # 0.9 H (0-0.7) k/uL Eosinophils # (Manual) 0.74 H (0-0.7) k/uL Sodium (137-145) mmol/L Potassium (3.5-5.1) mmol/L Chloride (98-107) mmol/L BUN (7-17) mg/dL Glucose (74-99) mg/dL Plasma Lactic Acid Thomas 3.8 H* (0.7-2.0) mmol/L Calcium (8.4-10.2) mg/dL Alkaline Phosphatase (38-126) U/L Total Protein (6.3-8.2) g/dL Albumin (3.5-5.0) g/dL Urine Protein (Negative) Urine Blood (Negative) Ur Leukocyte Esterase (Negative) Urine RBC (0-5) /hpf Urine WBC (0-5) /hpf Amorphous Sediment (None) /hpf Urine Bacteria (None) /hpf Hyaline Casts (0-2) /lpf Urine Mucus (None) /hpf Stool Occult Blood (Negative) 10/20/19 Range/Units 06:09 WBC (3.8-10.6) k/uL RBC (3.80-5.40) m/uL Hgb (11.4-16.0) gm/dL Hct (34.0-46.0) % MCHC (31.0-37.0) g/dL RDW (11.5-15.5) % Plt Count (150-450) k/uL Neutrophils # (1.3-7.7) k/uL Neutrophils # (Manual) (1.3-7.7) k/uL Monocytes # (Manual) (0-1.0) k/uL Eosinophils # (0-0.7) k/uL Eosinophils # (Manual) (0-0.7) k/uL Sodium 132 L (137-145) mmol/L Potassium 3.1 L (3.5-5.1) mmol/L Chloride (98-107) mmol/L BUN (7-17) mg/dL Glucose 100 H (74-99) mg/dL Plasma Lactic Acid Thomas (0.7-2.0) mmol/L Calcium 7.7 L (8.4-10.2) mg/dL Alkaline Phosphatase 129 H (38-126) U/L Total Protein 4.8 L (6.3-8.2) g/dL Albumin 2.1 L (3.5-5.0) g/dL Urine Protein (Negative) Urine Blood (Negative) Ur Leukocyte Esterase (Negative) Urine RBC (0-5) /hpf Urine WBC (0-5) /hpf Amorphous Sediment (None) /hpf Urine Bacteria (None) /hpf Hyaline Casts (0-2) /lpf Urine Mucus (None) /hpf Stool Occult Blood (Negative) Microbiology - Last 24 Hours (Table) 10/19/19 14:35 Urine Culture - Preliminary Urine,Voided Chest x-ray: report reviewed (chest x-ray negative for any acute process.) Assessment and Plan (1) Normocytic hypochromic anemia Narrative/Plan: 79-year-old female with a medical history significant for hypertension who presented for evaluation of abnormal labs. Found to have elevated white count and platelet count on presentation and anemia with normocytic hypochromic indices. The patient denies any overt signs or symptoms of GI bleeding. No prior endoscopy. She denies any history of peptic ulcer disease or NSAID use. Stool testing was positive for occult blood. Unclear etiology, may be related to occult GI blood loss with differential including peptic ulcer disease, AVM, or lower GI pathology or may be froma hematologic process. Current Visit: Yes Status: Acute Code(s): D50.9 - IRON DEFICIENCY ANEMIA, UNSPECIFIED SNOMED Code(s): 90343285 (2) Stool guaiac positive Current Visit: Yes Status: Acute Code(s): R19.5 - OTHER FECAL ABNORMALITIES SNOMED Code(s): 23831197 Plan: supportive care Clear liquid diet Nothing by mouth after midnight Hematology service consulted to see the patient with laboratory evaluation ordered for anemia Bowel prep ordered Plan for EGD and colonoscopy tomorrow for further evaluation Further recommendations pending findings of endoscopy Thank you for allowing us to participate in the care of the patient we will continue to follow
[2019-10-20] MEDS: ACETAMINOPHEN TAB 325 MG TAB PO PRN (20:08)
[2019-10-20 23:15] LABS: Folate, Serum 6.1 ng/mL
[2019-10-20 23:22] LABS: % Iron Saturation 5.67 (12.00-45.00); Ferritin 413.9 ng/mL (10.0-291.0); Iron 8 ug/dL (50-170); Rheumatoid Factor, Qnt 9 IU/mL (0-15); Total Iron Binding Capacity 141 ug/dL (228-460)
[2019-10-21 00:11] LABS: Protein, Total 4.6 g/dL (6.2-8.2)
[2019-10-21] MEDS: METOPROLOL TARTRATE 25 MG TAB PO SCH ×2 (08:18→19:35)
[2019-10-21] MEDS ORDERED: PHENYLEPHRINE-0.9% NACL SYG 1 MG/10 ML SYRINGE ONE (08:47)
[2019-10-21] MEDS ORDERED: PROPOFOL 10 MG/ML 20 ML VIAL IV ONE (08:47)
[2019-10-21] MEDS ORDERED: LIDOCAINE 1% INJ 10MG/ML (20 ML MDV) ONE (08:47)
[2019-10-21] MEDS ORDERED: IV FLUID CONTINUATION 1,000 ML IV ONE ×2 (08:50)
[2019-10-21] MEDS ORDERED: LACTATED RINGERS 1,000 ML IV ONE ×2 (09:07)
[2019-10-21] MEDS ORDERED: SIMETHICONE 40 MG/0.6 ML DROPS 2,000 MG/30 ML BOTTLE PO ONE (10:10)
--- NOTE | 2019-10-21 10:12 | P.PCN ---
Date of Procedure: 10/21/19 Description of Procedure: Brief history: 79-year-old female with medical history significant for hypertension who presented to the hospital for evaluation of abnormal labs and anemia. The patient denies any history of anemia except for during her with her son. She is not on any iron therapy at home. She denies any signs or symptoms of GI bleeding includingcoffee-ground emesis, hematemesis, melena or blood per rectum. She reports bowel movements at baseline are every other day and normal in color and caliber. No history of peptic ulcer disease. She denies any NSAID use. She is denying any abdominal pain at this time. She states that she has never had an EGD or colonoscopy in the past. Laboratory evaluation significant for WBC 18.6, hemoglobin7.2, platelet count 675,000, total bilirubin 0.6, alkaline phosphatase 129, AST 30 and ALT 15 with stool testing positive for occult blood. Procedure performed: Esophagogastroduodenoscopy with biopsy Colonoscopy Estimated blood loss: Minimal. Preoperative diagnosis: Anemia Anesthesia: MAC Procedure: After informed consent was obtained from the patient was brought into the endoscopy unit and IV sedation was administered by anesthesia under continuous monitoring. Initially upper endoscopy was done. The Olympus GF 190 video endoscope was inserted into the mouth and esophagus intubated without any difficulty and was gradually advanced into the stomach and duodenum and carefully examined. The bulb and second part of the duodenum appeared normal, with biopsies. The scope was then withdrawn into the stomach adequately insufflated with air and upon careful examination the antrum and body, cardia and fundus appeared normal, except for some mild scattered erythema in the antruma and body suggestive of mild gastritis with biopsies taken. The scope was then withdrawn into the esophagus. The GE junction was located at 38 cm to the incisors, with a 2 cm hiatal hernia noted. It appeared regular with no erythema erosions or ulcerations. Rest of the esophagus appeared normal. Patient tolerated the procedure well. At this time the patient continued to remain sedation. Initial digital rectal examination was normal. Olympus CF 190 video colonoscope was then inserted into the rectum and gradually advanced to the cecum without any difficulty. Careful examination was performed as the scope was gradually being withdrawn. The prep was excellent. The cecum, ascending colon, transverse colon, descending colon, sigmoid colon and rectum appeared normal, except for multiple diverticula in the sigmoid colon and descending colon. Retroflexion was performed in the rectum and no lesions were noted, low-grade internal hemorrhoids seen. Patient tolerated the procedure well. Impression: 1. Mild gastritis. Small hiatal hernia. Biopsies taken of the duodenum and antrum and body. 2. Moderate left colonic diverticulosis. Low-grade internal hemorrhoids. Recommendations: Findings of this examination were discussed with the patient as well as the medical team. At this time patient will remain nothing by mouth. Video capsule endoscopy will be performed today to complete evaluation for GI blood loss. Patient should be nothing by mouth for 2 hours after administration of the capsule endoscopy, okay for liquids after 2 hours and regular diet after 4 hours.
[2019-10-21 10:31] LABS: Anisocytosis Slight; Basophils # (A) 0.1 k/uL (0-0.2); Basophils % (A) 0 %; Eosinophils % (A) 3 %; HCT 22.5 % (34.0-46.0); Hypochromasia Marked; Lymphocytes # (A) 1.8 k/uL (1.0-4.8); Lymphocytes % (A) 6 %; MCH 25.8 pg (25.0-35.0); MCHC 29.5 g/dL (31.0-37.0); MCV 87.4 fL (80.0-100.0); Mean Platelet Volume 7.1; Monocytes # (A) 1.5 k/uL (0-1.0); Monocytes % (A) 5 %; Neutrophils # (A) 27.5 k/uL (1.3-7.7); Neutrophils % (A) 86 %; Platelet Count 631 k/uL (150-450); RBC 2.57 m/uL (3.80-5.40); WBC 32.2 k/uL (3.8-10.6)
[2019-10-21 10:32] LABS: African American GFR (CKD) >90 (>60 ml/min/1.73 sqM); Anion Gap 7 mmol/L; Blood Urea Nitrogen 9 mg/dL (7-17); Calcium 7.7 mg/dL (8.4-10.2); Carbon Dioxide 24 mmol/L (22-30); Chloride 104 mmol/L (98-107); Glucose 87 mg/dL (74-99); Non-African American GFR(CKD) 88 (>60 ml/min/1.73 sqM); Potassium 3.1 mmol/L (3.5-5.1); Sodium 135 mmol/L (137-145)
[2019-10-21 10:55] LABS: HGB 6.6 gm/dL (11.4-16.0)
--- NOTE | 2019-10-21 11:33 | P.PN ---
Subjective Progress Note Date: 10/21/19 Patient was seen and examined. Call from nursing regarding altered mentation yesterday. Apparently, patient was loopy and appeared lethargic. When I went to see her, she was alert and oriented 3. She is able to tell me where she has. She is able to tell me who the president is. She is able to tell me what year and month it is. CT head was ordered which was refused by the son. She denies any symptoms today. She denies any chest pain, shortness breath or palpitations. Objective - Vital Signs Vital signs: Vital Signs Temp 98.1 F 10/21/19 11:21 Pulse 53 L 10/21/19 11:21 Resp 18 10/21/19 11:21 BP 103/53 10/21/19 11:21 Pulse Ox 94 L 10/21/19 11:21 Intake & Output 10/20/19 10/21/19 10/21/19 18:59 06:59 18:59 Intake Total 240 240 500 Balance 240 240 500 Weight 57.5 kg 62.6 kg Intake: IV 500 Oral 240 240 Other: Voiding Method Toilet # Voids 1 # Bowel Movements 2 - Exam General: [non toxic], [no distress], [appears at stated age] Derm: [warm], [dry] Head: [atraumatic], [normocephalic], [symmetric] Eyes: [EOMI], [no lid lag], [anicteric sclera] Mouth: [no lip lesion], [mucus membranes moist] Cardiovascular: [S1S2 reg], [no murmur], [positive posterior tibial pulse bilateral], Lungs: [CTA bilateral], [no rhonchi, no rales] , [no accessory muscle use] Abdominal: [soft], [ nontender to palpation], [no guarding], [no appreciable organomegaly] Ext: [no gross muscle atrophy], [no edema], [no contractures] Neuro: [no focal neuro deficits] Psych: [Alert], [oriented], [appropriate affect] - Labs CBC & Chem 7: 10/21/19 10:00 10/21/19 10:00 Labs: Abnormal Lab Results - Last 24 Hours (Table) 10/20/19 10/20/19 10/20/19 Range/Units 06:09 06:09 06:09 WBC (3.8-10.6) k/uL RBC (3.80-5.40) m/uL Hgb (11.4-16.0) gm/dL Hct (34.0-46.0) % MCHC (31.0-37.0) g/dL RDW (11.5-15.5) % Plt Count (150-450) k/uL Neutrophils # (1.3-7.7) k/uL Monocytes # (0-1.0) k/uL Eosinophils # (0-0.7) k/uL ESR 99 H (0-20) mm/hr Retic Count 2.4 H (0.5-2.0) % Sodium (137-145) mmol/L Potassium (3.5-5.1) mmol/L Uric Acid 7.9 H (3.7-7.4) mg/dL Calcium (8.4-10.2) mg/dL Iron 8 L (50-170) ug/dL TIBC 141 L (228-460) ug/dL % Saturation 5.67 L (12.00-45.00) Ferritin 413.9 H (10.0-291.0) ng/mL Total Protein (PEP) 4.6 L (6.2-8.2) g/dL Amylase <30 L (30-110) U/L Vitamin B12 2460.0 H (200.0-944.0) pg/mL PTH Intact (14.0-72.0) pg/mL 10/20/19 10/21/19 10/21/19 Range/Units 06:09 10:00 10:00 WBC 32.2 H (3.8-10.6) k/uL RBC 2.57 L (3.80-5.40) m/uL Hgb 6.6 L* (11.4-16.0) gm/dL Hct 22.5 L (34.0-46.0) % MCHC 29.5 L (31.0-37.0) g/dL RDW 17.0 H (11.5-15.5) % Plt Count 631 H (150-450) k/uL Neutrophils # 27.5 H (1.3-7.7) k/uL Monocytes # 1.5 H (0-1.0) k/uL Eosinophils # 1.0 H (0-0.7) k/uL ESR (0-20) mm/hr Retic Count (0.5-2.0) % Sodium 135 L (137-145) mmol/L Potassium 3.1 L (3.5-5.1) mmol/L Uric Acid (3.7-7.4) mg/dL Calcium 7.7 L (8.4-10.2) mg/dL Iron (50-170) ug/dL TIBC (228-460) ug/dL % Saturation (12.00-45.00) Ferritin (10.0-291.0) ng/mL Total Protein (PEP) (6.2-8.2) g/dL Amylase (30-110) U/L Vitamin B12 (200.0-944.0) pg/mL PTH Intact 105.7 H (14.0-72.0) pg/mL Microbiology - Last 24 Hours (Table) 10/19/19 16:56 Blood Culture - Preliminary Blood No Growth after 24 hours 10/19/19 14:35 Urine Culture - Final Urine,Voided Assessment and Plan Assessment: Anemia with positive stool occult blood Hypokalemia SIRS Leukocytosis Hyponatremia Abnormal urinalysis Hypertension Patient's hemoglobin is 8.2-7.2-6.6 with positive stool for occult blood. EGD and colonoscopy shows gastritis, low-grade internal hemorrhoids, diverticulosis. Iron study shows anemia of chronic disease. Plans: Gastroenterology following. Transfuse 1 unit PRBC. Repeat CBC tomorrow morning. Plans for capsule endoscopy today. Plans: Replace via protocol. Patient meet SIRS criteria. She was tachycardic (now resolved). She has a leukocytosis. No known source of infection. Chest x-ray is negative. Urinalysis with moderate leukocyte esterase. Blood culture negative at 24 hours. Urine culture negative. Plans: Follow final blood culture. Hold antibiotics for now. Repeat CBC tomorrow morning. Telemetry monitoring. Unknown significance. No obvious source of infection. Rheumatoid factor negative. B12 and folic acid within normal limits. Iron studies show anemia chronic disease. Plans: Follow hematology consultation. Workup underway. Improving with hydration. Plans: DC IVF and encourage hydration by mouth. Patient is asymptomatic. Plans: Nothing further to do. BP 103/53. Plans: Continue metoprolol. Reintroduce meds as patient tolerates. [Patient admitted for anemia, possible GI bleed. EGD and colonoscopy unrevealing. Transfusing one PRBC today. Capsule endoscopy today. Potassium to be replaced. Hematology consulted for leukocytosis and anemia, workup u [place]. Likely DC in 1-2 days.]
[2019-10-21] MEDS ORDERED: POTASSIUM CHLORIDE ER 20 MEQ TAB.ER PO STA (13:32)
[2019-10-21] MEDS: ACETAMINOPHEN TAB 325 MG TAB PO PRN (16:37)
[2019-10-22 08:17] LABS: Anisocytosis Slight; Basophils # (A) 0.1 k/uL (0-0.2); Basophils % (A) 0 %; Eosinophils # (A) 1.2 k/uL (0-0.7); Eosinophils % (A) 4 %; HCT 24.7 % (34.0-46.0); HGB 7.5 gm/dL (11.4-16.0); Hypochromasia Moderate; Lymphocytes # (A) 1.9 k/uL (1.0-4.8); Lymphocytes % (A) 7 %; MCH 25.8 pg (25.0-35.0); MCHC 30.2 g/dL (31.0-37.0); MCV 85.5 fL (80.0-100.0); Mean Platelet Volume 7.4; Monocytes % (A) 4 %; Neutrophils # (A) 23.7 k/uL (1.3-7.7); Neutrophils % (A) 85 %; Platelet Count 552 k/uL (150-450); RBC 2.89 m/uL (3.80-5.40); RDW 17.3 % (11.5-15.5); WBC 27.8 k/uL (3.8-10.6)
[2019-10-22] MEDS: METOPROLOL TARTRATE 25 MG TAB PO SCH ×2 (08:25→19:31)
[2019-10-22 08:29] LABS: Free Kappa Lt Chain Qnt, Serum 2.77 mg/dL (0.33-1.94)
[2019-10-22 08:32] LABS: African American GFR (CKD) >90 (>60 ml/min/1.73 sqM); Anion Gap 7 mmol/L; Blood Urea Nitrogen 12 mg/dL (7-17); Calcium 7.9 mg/dL (8.4-10.2); Carbon Dioxide 23 mmol/L (22-30); Chloride 105 mmol/L (98-107); Glucose 73 mg/dL (74-99); Non-African American GFR(CKD) 89 (>60 ml/min/1.73 sqM); Potassium 3.8 mmol/L (3.5-5.1); Sodium 135 mmol/L (137-145)
[2019-10-22 11:19] VITALS: BMI 21.8
[2019-10-22 12:44] LABS: Phosphorus 2.4 mg/dL (2.5-4.5); Uric Acid 4.9 mg/dL (3.7-7.4)
[2019-10-22 13:20] LABS: Albumin 1.69 g/dL (3.80-4.90); Gamma Globulin 0.86 g/dL (0.70-1.50)
--- NOTE | 2019-10-22 14:23 | P.PN ---
Subjective Progress Note Date: 10/22/19 79-year-old female with PMH of hypertension presents the ED for abnormal labs. Patient states that she was getting her blood pressure checked at her PCPs clinic when she was sent here for abnormal blood work. She had a hemoglobin that had suddenly dropped from baseline and leukocytosis in the 30,000s. In the ED, her vital signs were stable except for heart rate of 114. Chest x-ray was negative. CBC showed leukocytosis of 19.7 and hemoglobin of 8.2. Platelet count was 769. CMP showed sodium of 131, chloride of 95, BUN of 21, glucose of 183. Lactic acid was 3.8. Alkaline phosphatase of 181. Stool for occult blood was positive. Urinalysis showed moderate blood, moderate leukocyte esterase. Patient is admitted for anemia, GI evaluation and leukocytosis of unknown significance. Gastroenterology was consulted and recommended EGD and colonoscopy. EGD and colonoscopy showed mild gastritis, small hiatal hernia, diverticulosis and low-grade internal hemorrhoids. Her hemoglobin did drop to 6.6 on October 20 for which he was transfused 1 unit PRBC. Her leukocytosis remained persistent and hematology was consulted. Full anemia workup was ordered by hematology. Patient continued to spike fevers for which she was started on Zosyn. Infectious disease was consulted. Patient was seen and examined. No acute events overnight. Patient reports no complaints. She denies any abdominal pain, nausea or vomiting. No fever or chills. She denies any chest pain, cough, shortness of breath or palpitations. No dysuria. Objective - Vital Signs Vital signs: Vital Signs Temp 98.9 F 10/22/19 12:30 Pulse 92 10/22/19 12:30 Resp 18 10/22/19 12:30 BP 146/75 10/22/19 12:30 Pulse Ox 95 10/22/19 12:30 Intake & Output 10/21/19 10/22/19 10/22/19 18:59 06:59 18:59 Intake Total 930 150 240 Balance 930 150 240 Weight 63.2 kg 63.2 kg Intake: IV 500 Oral 120 150 240 Blood Product 310 Rc As-1 Unit 310 [id number] Other: Voiding Method Toilet Toilet # Voids 1 1 1 - Exam General: [non toxic], [no distress], [appears at stated age] Derm: [warm], [dry] Head: [atraumatic], [normocephalic], [symmetric] Eyes: [EOMI], [no lid lag], [anicteric sclera] Mouth: [no lip lesion], [mucus membranes moist] Cardiovascular: [S1S2 reg], [no murmur], [positive posterior tibial pulse bilateral], Lungs: [CTA bilateral], [no rhonchi, no rales] , [no accessory muscle use] Abdominal: [soft], [ nontender to palpation], [no guarding], [no appreciable organomegaly] Ext: [no gross muscle atrophy], [no edema], [no contractures] Neuro: [no focal neuro deficits] Psych: [Alert], [oriented], [appropriate affect] - Labs CBC & Chem 7: 10/22/19 07:17 10/22/19 07:17 Labs: Abnormal Lab Results - Last 24 Hours (Table) 10/20/19 10/21/19 10/22/19 Range/Units 06:09 11:35 07:17 WBC 27.8 H (3.8-10.6) k/uL RBC 2.89 L (3.80-5.40) m/uL Hgb 7.5 L (11.4-16.0) gm/dL Hct 24.7 L (34.0-46.0) % MCHC 30.2 L (31.0-37.0) g/dL RDW 17.3 H (11.5-15.5) % Plt Count 552 H (150-450) k/uL Neutrophils # 23.7 H (1.3-7.7) k/uL Eosinophils # 1.2 H (0-0.7) k/uL Haptoglobin 373.0 H (31.2-198.0) mg/dL Sodium (137-145) mmol/L Glucose (74-99) mg/dL Calcium (8.4-10.2) mg/dL Phosphorus (2.5-4.5) mg/dL Albumin (PEP) 1.69 L (3.80-4.90) g/dL Qetrc-3-Sgdghlxee 0.56 H (0.10-0.40) g/dL Free [place] LC, Quant 2.77 H (0.33-1.94) mg/dL Free Lambda LC, Quant 4.28 H (0.57-2.63) mg/dL Crossmatch See Detail 10/22/19 10/22/19 Range/Units 07:17 07:17 WBC (3.8-10.6) k/uL RBC (3.80-5.40) m/uL Hgb (11.4-16.0) gm/dL Hct (34.0-46.0) % MCHC (31.0-37.0) g/dL RDW (11.5-15.5) % Plt Count (150-450) k/uL Neutrophils # (1.3-7.7) k/uL Eosinophils # (0-0.7) k/uL Haptoglobin (31.2-198.0) mg/dL Sodium 135 L (137-145) mmol/L Glucose 73 L (74-99) mg/dL Calcium 7.9 L (8.4-10.2) mg/dL Phosphorus 2.4 L (2.5-4.5) mg/dL Albumin (PEP) (3.80-4.90) g/dL Xkkfo-7-Xkftfrwtv (0.10-0.40) g/dL Free [place] LC, Quant (0.33-1.94) mg/dL Free Lambda LC, Quant (0.57-2.63) mg/dL Crossmatch Microbiology - Last 24 Hours (Table) 10/19/19 16:56 Blood Culture - Preliminary Blood No Growth after 48 hours Assessment and Plan Assessment: Anemia with positive stool occult blood SIRS Leukocytosis Hyponatremia Abnormal urinalysis Hypertension Patient's hemoglobin is 8.2-7.2-6.6-7.5 with positive stool for occult blood. EGD and colonoscopy shows gastritis, low-grade internal hemorrhoids, diverticulosis. Iron study shows anemia of chronic disease. Plans: Gastroenterology following. s/p 1 PRBC. Repeat CBC tomorrow morning. Follow results of capsule endoscopy. GI recommends IV iron. Patient meet SIRS criteria. She was tachycardic . She has a leukocytosis. No known source of infection. Chest x-ray is negative. Urinalysis with moderate leukocyte esterase. Blood culture negative at 48 hours. Urine culture negative. Plans: Follow final blood culture. Start Rocephin for repeated fevers and consult infectious disease. Repeat CBC tomorrow morning. Telemetry monitoring. Unknown significance. No obvious source of infection. Rheumatoid factor negative. B12 and folic acid within normal limits. Iron studies show anemia chronic disease. Plans: Follow hematology consultation. Workup underway. Improving with hydration. Plans: DC IVF and encourage hydration by mouth. Moderate leukocyte esterase. Plans: Start Rocephin. BP 146/75. Plans: Continue metoprolol. Reintroduce meds as patient tolerates. [Patient admitted for anemia and leukocytosis. EGD and colonoscopy unrevealing. Endoscopy Results Pending. Continuing to [place] Fevers with Leukocytosis. Hematology on Board. Started on Rocephin for Possible UTI though asymptomatic. Infectious disease consulted. She is pending clinical improvement. Likely DC 1-2 days.]
--- NOTE | 2019-10-22 15:09 | P.PN ---
Subjective Progress Note Date: 10/22/19 Principal diagnosis: Anemia Patient was seen and examined at the bedside. No acute changes through the night . Abdomen is soft and nontender. Patient denies any evidence of a GI bleed. She denies any black stools, rectal bleeding or melena. She denies any nausea or vomiting. States she's had one bowel movement since her procedure. Hemoglobin was stable at 7.5. Objective - Vital Signs Vital signs: Vital Signs Temp 98.9 F 10/22/19 12:30 Pulse 92 10/22/19 12:30 Resp 18 10/22/19 12:30 BP 146/75 10/22/19 12:30 Pulse Ox 95 10/22/19 12:30 Intake & Output 10/21/19 10/22/19 10/22/19 18:59 06:59 18:59 Intake Total 930 150 240 Balance 930 150 240 Weight 63.2 kg 63.2 kg Intake: IV 500 Oral 120 150 240 Blood Product 310 Rc As-1 Unit 310 [id number] Other: Voiding Method Toilet Toilet # Voids 1 1 1 - Exam On physical examination, patient appears comfortable in no apparent distress. HEAD: Normocephalic, atraumatic. EYES: No scleral icterus. No conjunctival injection. MOUTH: No lesions, tongue midline. NECK: Trachea midline, no gross abnormalities. CHEST: decrease dairy [place] lung whiting. HEART: Regular rate and rhythm. ABDOMEN: Soft, thin and nontender to palpation. Bowel sounds are positive. No organomegaly. No guarding or rigidity. EXTREMITIES: No pedal edema. SKIN: No rashes, no jaundice. NEUROLOGIC: Alert and oriented x3. No focal deficits. - Labs CBC & Chem 7: 10/22/19 07:17 10/22/19 07:17 Labs: Abnormal Lab Results - Last 24 Hours (Table) 10/20/19 10/21/19 10/22/19 Range/Units 06:09 11:35 07:17 WBC 27.8 H (3.8-10.6) k/uL RBC 2.89 L (3.80-5.40) m/uL Hgb 7.5 L (11.4-16.0) gm/dL Hct 24.7 L (34.0-46.0) % MCHC 30.2 L (31.0-37.0) g/dL RDW 17.3 H (11.5-15.5) % Plt Count 552 H (150-450) k/uL Neutrophils # 23.7 H (1.3-7.7) k/uL Eosinophils # 1.2 H (0-0.7) k/uL Haptoglobin 373.0 H (31.2-198.0) mg/dL Sodium (137-145) mmol/L Glucose (74-99) mg/dL Calcium (8.4-10.2) mg/dL Phosphorus (2.5-4.5) mg/dL Albumin (PEP) 1.69 L (3.80-4.90) g/dL Enhua-3-Qlzpxmdco 0.56 H (0.10-0.40) g/dL Free [place] LC, Quant 2.77 H (0.33-1.94) mg/dL Free Lambda LC, Quant 4.28 H (0.57-2.63) mg/dL Crossmatch See Detail 10/22/19 10/22/19 Range/Units 07:17 07:17 WBC (3.8-10.6) k/uL RBC (3.80-5.40) m/uL Hgb (11.4-16.0) gm/dL Hct (34.0-46.0) % MCHC (31.0-37.0) g/dL RDW (11.5-15.5) % Plt Count (150-450) k/uL Neutrophils # (1.3-7.7) k/uL Eosinophils # (0-0.7) k/uL Haptoglobin (31.2-198.0) mg/dL Sodium 135 L (137-145) mmol/L Glucose 73 L (74-99) mg/dL Calcium 7.9 L (8.4-10.2) mg/dL Phosphorus 2.4 L (2.5-4.5) mg/dL Albumin (PEP) (3.80-4.90) g/dL Qbygw-6-Tbwzufpjv (0.10-0.40) g/dL Free [place] LC, Quant (0.33-1.94) mg/dL Free Lambda LC, Quant (0.57-2.63) mg/dL Crossmatch Microbiology - Last 24 Hours (Table) 10/19/19 16:56 Blood Culture - Preliminary Blood No Growth after 48 hours Assessment and Plan Assessment: (1) Normocytic hypochromic anemia Narrative/Plan: 79-year-old female with a medical history significant for hypertension who presented for evaluation of abnormal labs. Found to have elevated white count and platelet count on presentation and anemia with normocytic hypochromic indices. The patient denies any overt signs or symptoms of GI bleeding. No prior endoscopy. She denies any history of peptic ulcer disease or NSAID use. Stool testing was positive for occult blood. Unclear etiology, may be related to occult GI blood loss with differential including peptic ulcer disease, AVM, or lower GI pathology or may be froma hematologic process. EGD performed with findings that include mild gastritis. Small hiatal hernia, biopsies taken. Colonoscopy performed with findings that includes moderate left colonic diverticulosis. Low-grade internal hemorrhoids. Small bowel video capsule endoscopy Iron studies completed, iron 8, TIBC 141, percent saturation 5.67, ferritin 413, Agree with IV iron infusion Current Visit: Yes Status: Acute Code(s): D50.9 - IRON DEFICIENCY ANEMIA, UNSPECIFIED SNOMED Code(s): 47887803 (2) Stool guaiac positive Current Visit: Yes Status: Acute Code(s): R19.5 - OTHER FECAL ABNORMALITIES SNOMED Code(s): 04336523 Plan: supportive care Advance diet as tolerated Hematology service consulted to see the patient with laboratory evaluation ordered for anemia Iron studies ordered EGD and colonoscopy performed Small bowel video capsule endoscopy performed results pending Agree with IV iron infusion Thank you for allowing us to participate in the care of the patient we will continue to follow The impression and plan of care has been dictated as directed. I performed a history and examination of this patient, discussed the same with the dictator. I agree with the dictator's note ,documented as a scribe. Any additional findings or plans will be noted.
[2019-10-22] MEDS ORDERED: PIPERACILLIN-TAZOBACTAM 3.375 GM in SODIUM CHLORIDE 0.9% 100 ML IVPB SCH (16:00)
[2019-10-22] MEDS: SODIUM FERRIC GLUCONAT-SUCROSE 125 MG in SODIUM CHLORIDE 0.9% 100 ML IVPB SCH (16:27)
--- NOTE | 2019-10-22 16:54 | P.PN ---
Subjective Progress Note Date: 10/21/19 Principal diagnosis: Anemia Status Post endoscopy with GI today, no active signs of bleeding identified. Internal hemorrhoids, diverticulosis, and mild gastritis per GI note. hemoglobin 6.6 today and transfusion support ordered. Family at bedside during interview today and further information provided. Patient apparently was not eating for 3 days prior to admission and takes a powdered high dose aspirin and caffeine twice a day as a regular. If their are unseen avms and patient was on high doses of aspirin and caffeine on an empty stomach this may have exacerbated underlying anemia. The family is concerned as s he has become weaker since hospitalization. Therefore have asked to be evaluated for potential help pt ot at home or IPR. Objective - Vital Signs Vital signs: Vital Signs Temp 98 F 10/21/19 13:27 Pulse 60 10/21/19 13:27 Resp 18 10/21/19 13:27 BP 128/59 10/21/19 13:27 Pulse Ox 94 L 10/21/19 11:21 Intake & Output 10/20/19 10/21/19 10/21/19 18:59 06:59 18:59 Intake Total 240 240 500 Balance 240 240 500 Weight 57.5 kg 62.6 kg Intake: IV 500 Oral 240 240 Blood Product 0 Rc As-1 Unit 0 [id number] Other: Voiding Method Toilet # Voids 1 # Bowel Movements 2 - Exam - Constitutional General appearance: cooperative, no acute distress - EENT Eyes: EOMI, poor dentition ENT: hard of hearing, NA/AT, normal oropharynx - Neck Neck: normal ROM - Respiratory Respiratory: bilateral: CTA - Cardiovascular Rhythm: regular - Gastrointestinal General gastrointestinal: normal bowel sounds, soft, tenderness - Integumentary Integumentary: pale - Neurologic Neurologic: CNII-XII intact - Musculoskeletal Musculoskeletal: generalized weakness, strength equal bilaterally - Psychiatric Psychiatric: A&O x's 3, appropriate affect, intact judgment & insight - Labs CBC & Chem 7: 10/22/19 07:17 10/22/19 07:17 Labs: Abnormal Lab Results - Last 24 Hours (Table) 10/20/19 10/20/19 10/20/19 Range/Units 06:09 06:09 06:09 WBC (3.8-10.6) k/uL RBC (3.80-5.40) m/uL Hgb (11.4-16.0) gm/dL Hct (34.0-46.0) % MCHC (31.0-37.0) g/dL RDW (11.5-15.5) % Plt Count (150-450) k/uL Neutrophils # (1.3-7.7) k/uL Monocytes # (0-1.0) k/uL Eosinophils # (0-0.7) k/uL ESR 99 H (0-20) mm/hr Retic Count 2.4 H (0.5-2.0) % Sodium (137-145) mmol/L Potassium (3.5-5.1) mmol/L Calcium (8.4-10.2) mg/dL Iron 8 L (50-170) ug/dL TIBC 141 L (228-460) ug/dL % Saturation 5.67 L (12.00-45.00) Ferritin 413.9 H (10.0-291.0) ng/mL Total Protein (PEP) 4.6 L (6.2-8.2) g/dL Vitamin B12 2460.0 H (200.0-944.0) pg/mL PTH Intact (14.0-72.0) pg/mL Crossmatch 10/20/19 10/21/19 10/21/19 Range/Units 06:09 10:00 10:00 WBC 32.2 H (3.8-10.6) k/uL RBC 2.57 L (3.80-5.40) m/uL Hgb 6.6 L* (11.4-16.0) gm/dL Hct 22.5 L (34.0-46.0) % MCHC 29.5 L (31.0-37.0) g/dL RDW 17.0 H (11.5-15.5) % Plt Count 631 H (150-450) k/uL Neutrophils # 27.5 H (1.3-7.7) k/uL Monocytes # 1.5 H (0-1.0) k/uL Eosinophils # 1.0 H (0-0.7) k/uL ESR (0-20) mm/hr Retic Count (0.5-2.0) % Sodium 135 L (137-145) mmol/L Potassium 3.1 L (3.5-5.1) mmol/L Calcium 7.7 L (8.4-10.2) mg/dL Iron (50-170) ug/dL TIBC (228-460) ug/dL % Saturation (12.00-45.00) Ferritin (10.0-291.0) ng/mL Total Protein (PEP) (6.2-8.2) g/dL Vitamin B12 (200.0-944.0) pg/mL PTH Intact 105.7 H (14.0-72.0) pg/mL Crossmatch 10/21/19 Range/Units 11:35 WBC (3.8-10.6) k/uL RBC (3.80-5.40) m/uL Hgb (11.4-16.0) gm/dL Hct (34.0-46.0) % MCHC (31.0-37.0) g/dL RDW (11.5-15.5) % Plt Count (150-450) k/uL Neutrophils # (1.3-7.7) k/uL Monocytes # (0-1.0) k/uL Eosinophils # (0-0.7) k/uL ESR (0-20) mm/hr Retic Count (0.5-2.0) % Sodium (137-145) mmol/L Potassium (3.5-5.1) mmol/L Calcium (8.4-10.2) mg/dL Iron (50-170) ug/dL TIBC (228-460) ug/dL % Saturation (12.00-45.00) Ferritin (10.0-291.0) ng/mL Total Protein (PEP) (6.2-8.2) g/dL Vitamin B12 (200.0-944.0) pg/mL PTH Intact (14.0-72.0) pg/mL Crossmatch See Detail Microbiology - Last 24 Hours (Table) 10/19/19 16:56 Blood Culture - Preliminary Blood No Growth after 24 hours 10/19/19 14:35 Urine Culture - Final Urine,Voided Assessment and Plan Plan: Assessment and Recommendations: 1. Febrile Illness:improved 2. Leukocytosis: - Appears reactive with mostly comprised of neutrophils - Related to number 1 3. Normocytic Hypochromic Anemia: - GI Status post endoscopy no active bleed, mild gastritis, left diverticulosis - Ferritin increased, no obvious iron deficiency, therefore must rule out other etiologies: Immunofixation, NILDA, RF, LDH, Hapto, sent 4. Weakness: - PT/OT evalu and assistace at home at request of patient and family Patient educated on avoiding ibuprofen, aspirin, and high doses of caffeine. especially on empty stomach.
[2019-10-22] MEDS ORDERED: IOPAMIDOL CONTRAST (ORAL USE) VIAL PO PRN (21:56)
--- NOTE | 2019-10-22 22:04 | P.CONS ---
History of Present Illness - Reason for Consult Consult date: 10/22/19 Fever and leukocytosis Requesting physician: Mitul Irvin - Chief Complaint Weakness and abnormal labs x 1 day - History of Present Illness Patient is 79-year-old female who apparently hasn't seen a physician in almost 50 years recently established a PCP after pending the patient noticed to have elevated blood pressure and was started on lisinopril patient subsequently did have follow-up blood work and she was noticed to have elevated white count of 31,000 and anemia for the patient was sent to the ER, the patient, during of some weakness though denies having any headache or URI symptoms denies having any chest pain or shortness of breath or cough no nausea no vomiting no abdominal pain or any diarrhea on arrival to the ER the patient was afebrile and subsequently did spike a fever of 100.7 on October 18, with a temperature of 102.9 on October 19 as well as October 20 and a low-grade fever today, patient also have elevated white count of 20,000 and was up to 32.2 yesterday, patient has been seen by GI services and the patient is status post EGD and colonoscopy with evidence of gastritis and diverticulosis but not a source of bleeding, patient did have blood and urine cultures has been negative chest x-ray did not show any pneumonia infection disease was consulted today day 4 of her admission for further recommendation regarding her fever and elevated white count, as mentioned above the patient denies any symptom at this point Review of Systems Positive point has been mentioned in the HPI rest of the systems are negative Past Medical History Past Medical History: Hypertension History of Any Multi-Drug Resistant Organisms: None Reported Past Surgical History: No Surgical Hx Reported Past Anesthesia/Blood Transfusion Reactions: No Reported Reaction Past Psychological History: No Psychological Hx Reported Smoking Status: Never smoker Past Alcohol Use History: None Reported Past Drug Use History: None Reported - Past Family History Son(s) Family Medical History: Hypertension Medications and Allergies Home Medications Medication Instructions Recorded Confirmed Type Metoprolol Tartrate 25 mg PO BID 10/19/19 10/19/19 History Multivitamins, Thera [Multivitamin 1 tab PO DAILY 10/19/19 10/19/19 History (formulary)] hydroCHLOROthiazide 25 mg PO DAILY 10/19/19 10/19/19 History lisinopriL 20 mg PO DAILY 10/19/19 10/19/19 History Allergies Allergy/AdvReac Type Severity Reaction Status Date / Time No Known Allergies Allergy Verified 10/19/19 17:29 Physical Exam Vitals: Vital Signs Temp Pulse Pulse Resp BP BP Pulse Ox 10/22/19 12:30 98.9 F 92 16 146/75 95 10/22/19 08:15 99.8 F H 100 18 115/61 94 L 10/22/19 03:29 98.9 F 94 16 109/60 96 10/21/19 23:36 81 18 10/21/19 23:35 99.1 F 81 18 109/55 95 10/21/19 20:00 99.0 F 111 H 18 100/58 95 10/21/19 16:35 102.7 F H 114 H 18 125/59 94 L Intake and Output 10/22/19 10/22/19 10/22/19 06:59 14:59 22:59 Intake Total 240 Balance 240 Intake: Oral 240 Other: Voiding Method Toilet Toilet # Voids 1 1 2 # Bowel Movements 2 Weight 63.2 kg 63.2 kg GENERAL DESCRIPTION: An elderly female lying in bed, no distress. No tachypnea or accessory muscle of respiration use. HEENT: Shows Pallor , no scleral icterus. Oral mucous membrane is dry. No pharyngeal erythema or thrush NECK: Trachea central, no thyromegaly. LUNGS: Unlabored breathing. Clear to auscultation anteriorly. No wheeze or cr ackle. HEART: S1, S2, regular rate and rhythm. No loud murmur ABDOMEN: Soft, no tenderness , guarding or rigidity, no organomegaly EXTREMITIES: No edema of feet. SKIN: No rash, no masses palpable. NEUROLOGICAL: The patient is awake, alert, oriented x3, mood and affect normal. Results CBC & Chem 7: 10/22/19 07:17 10/22/19 07:17 Labs: Abnormal Lab Results - Last 24 Hours (Table) 10/20/19 10/21/19 10/22/19 Range/Units 06:09 11:35 07:17 WBC 27.8 H (3.8-10.6) k/uL RBC 2.89 L (3.80-5.40) m/uL Hgb 7.5 L (11.4-16.0) gm/dL Hct 24.7 L (34.0-46.0) % MCHC 30.2 L (31.0-37.0) g/dL RDW 17.3 H (11.5-15.5) % Plt Count 552 H (150-450) k/uL Neutrophils # 23.7 H (1.3-7.7) k/uL Eosinophils # 1.2 H (0-0.7) k/uL Haptoglobin 373.0 H (31.2-198.0) mg/dL Sodium (137-145) mmol/L Glucose (74-99) mg/dL Calcium (8.4-10.2) mg/dL Phosphorus (2.5-4.5) mg/dL Albumin (PEP) 1.69 L (3.80-4.90) g/dL Wfopk-6-Omjxculke 0.56 H (0.10-0.40) g/dL Free [place] LC, Quant 2.77 H (0.33-1.94) mg/dL Free Lambda LC, Quant 4.28 H (0.57-2.63) mg/dL Crossmatch See Detail 10/22/19 10/22/19 Range/Units 07:17 07:17 WBC (3.8-10.6) k/uL RBC (3.80-5.40) m/uL Hgb (11.4-16.0) gm/dL Hct (34.0-46.0) % MCHC (31.0-37.0) g/dL RDW (11.5-15.5) % Plt Count (150-450) k/uL Neutrophils # (1.3-7.7) k/uL Eosinophils # (0-0.7) k/uL Haptoglobin (31.2-198.0) mg/dL Sodium 135 L (137-145) mmol/L Glucose 73 L (74-99) mg/dL Calcium 7.9 L (8.4-10.2) mg/dL Phosphorus 2.4 L (2.5-4.5) mg/dL Albumin (PEP) (3.80-4.90) g/dL Frlkb-7-Cmtglxoko (0.10-0.40) g/dL Free [place] LC, Quant (0.33-1.94) mg/dL Free Lambda LC, Quant (0.57-2.63) mg/dL Crossmatch Microbiology - Last 24 Hours (Table) 10/19/19 16:56 Blood Culture - Preliminary Blood No Growth after 48 hours Assessment and Plan Assessment: 1- patient presented to hospital with abnormal lab with elevated white count 31,000 and this patient now has been spiking a fever on a daily basis for the last 3 days and did have persistent elevated white count workup so far including a blood cultures urine culture has been negative and the chest x-ray did not show any pneumonia patient denies having any active symptoms the possibility of hematological malignancy versus an intra-abdominal source (1) Fever Current Visit: Yes Status: Acute Code(s): R50.9 - FEVER, UNSPECIFIED SNOMED Code(s): 767458157 (2) Leukocytosis Current Visit: Yes Status: Acute Code(s): D72.829 - ELEVATED WHITE BLOOD CELL COUNT, UNSPECIFIED SNOMED Code(s): 507259338 Plan: 1- we will repeat blood cultures CRP pro calcitonin 2-check CT of abdominal pelvis 3-and just antibiotics to Unasyn 3 g every 6 hours We will follow on clinical condition and cultures to further adjust medication if needed Thank you for this consultation will follow this patient with you Time with Patient: Greater than 30
[2019-10-22] MEDS: AMPICILLIN-SULBACTAM 3 GM in SODIUM CHLORIDE 0.9% 100 ML IVPB SCH (22:52)
[2019-10-23 04:18] VITALS: PULSE 94
[2019-10-23] MEDS: AMPICILLIN-SULBACTAM 3 GM in SODIUM CHLORIDE 0.9% 100 ML IVPB SCH ×2 (05:22→10:56)
[2019-10-23 07:22] LABS: Anisocytosis Slight; Basophils # (A) 0.1 k/uL (0-0.2); Basophils % (A) 0 %; Eosinophils # (A) 1.3 k/uL (0-0.7); Eosinophils % (A) 7 %; HGB 8.1 gm/dL (11.4-16.0); Hypochromasia Marked; Lymphocytes # (A) 1.8 k/uL (1.0-4.8); Lymphocytes % (A) 10 %; MCH 25.7 pg (25.0-35.0); MCHC 29.8 g/dL (31.0-37.0); MCV 86.2 fL (80.0-100.0); Mean Platelet Volume 7.2; Monocytes # (A) 0.7 k/uL (0-1.0); Monocytes % (A) 4 %; Neutrophils # (A) 14.1 k/uL (1.3-7.7); Neutrophils % (A) 78 %; Platelet Count 564 k/uL (150-450); RBC 3.13 m/uL (3.80-5.40); RDW 17.2 % (11.5-15.5)
[2019-10-23 08:41] LABS: ALT 12 U/L (4-34); AST 19 U/L (14-36); African American GFR (CKD) >90 (>60 ml/min/1.73 sqM); Albumin 2.1 g/dL (3.5-5.0); Alkaline Phosphatase 131 U/L (38-126); Anion Gap 6 mmol/L; Blood Urea Nitrogen 11 mg/dL (7-17); Calcium 8.3 mg/dL (8.4-10.2); Carbon Dioxide 25 mmol/L (22-30); Chloride 105 mmol/L (98-107); Glucose 87 mg/dL (74-99); LDH 386 U/L (313-618); Non-African American GFR(CKD) >90 (>60 ml/min/1.73 sqM); Potassium 3.8 mmol/L (3.5-5.1); Sodium 136 mmol/L (137-145); Total Bilirubin 0.5 mg/dL (0.2-1.3); Total Protein 4.8 g/dL (6.3-8.2); Uric Acid 4.6 mg/dL (3.7-7.4)
[2019-10-23] MEDS: SODIUM FERRIC GLUCONAT-SUCROSE 125 MG in SODIUM CHLORIDE 0.9% 100 ML IVPB SCH (08:56)
[2019-10-23] MEDS: METOPROLOL TARTRATE 25 MG TAB PO SCH (08:56)
[2019-10-23 09:57] LABS: C Reactive Protein 309.6 mg/L (<10.0)
[2019-10-23 11:45] VITALS: RESP 14
[2019-10-23 11:46] LABS: Rheumatoid Factor, Qnt 10 IU/mL (0-15)
[2019-10-23 11:47] VITALS: BP 147/84; TEMP 97.8
[2019-10-23 12:47] LABS: Procalcitonin 3.42 ng/mL (0.02-0.09)
--- NOTE | 2019-10-23 17:52 | P.PN ---
Subjective Progress Note Date: 10/23/19 Principal diagnosis: Anemia No acute complaints plans discharge today Objective - Vital Signs Vital signs: Vital Signs Temp 97.8 F 10/23/19 11:45 Pulse 94 10/23/19 11:45 Resp 14 10/23/19 11:45 BP 147/84 10/23/19 11:45 Pulse Ox 98 10/23/19 11:45 Intake & Output 10/22/19 10/23/19 10/23/19 18:59 06:59 18:59 Intake Total 462 100 80 Balance 462 100 80 Weight 63.2 kg 63.8 kg Intake: Intake, IV Titration 100 Amount Ampicillin-Sulbactam 3 gm 100 In Sodium Chloride 0.9% 100 ml @ 200 mls/hr IVPB Q6HR [facility] Rx#:[id number] Oral 462 80 Other: Voiding Method Toilet Toilet Toilet # Voids 1 1 1 # Bowel Movements 2 - Exam - Constitutional General appearance: cooperative, no acute distress - EENT Eyes: EOMI, poor dentition ENT: hard of hearing, NA/AT, normal oropharynx - Neck Neck: normal ROM - Respiratory Respiratory: bilateral: CTA - Cardiovascular Rhythm: regular - Gastrointestinal General gastrointestinal: normal bowel sounds, soft, tenderness - Integumentary Integumentary: pale - Neurologic Neurologic: CNII-XII intact - Musculoskeletal Musculoskeletal: generalized weakness, strength equal bilaterally - Psychiatric Psychiatric: A&O x's 3, appropriate affect, intact judgment & insight - Labs CBC & Chem 7: 10/23/19 06:40 10/23/19 06:40 Labs: Abnormal Lab Results - Last 24 Hours (Table) 10/23/19 10/23/19 10/23/19 Range/Units 06:40 06:40 06:40 WBC 18.0 H (3.8-10.6) k/uL RBC 3.13 L (3.80-5.40) m/uL Hgb 8.1 L (11.4-16.0) gm/dL Hct 27.0 L (34.0-46.0) % MCHC 29.8 L (31.0-37.0) g/dL RDW 17.2 H (11.5-15.5) % Plt Count 564 H (150-450) k/uL Neutrophils # 14.1 H (1.3-7.7) k/uL Eosinophils # 1.3 H (0-0.7) k/uL Sodium 136 L (137-145) mmol/L Calcium 8.3 L (8.4-10.2) mg/dL Alkaline Phosphatase 131 H (38-126) U/L C-Reactive Protein 309.6 H (<10.0) mg/L Total Protein 4.8 L (6.3-8.2) g/dL Albumin 2.1 L (3.5-5.0) g/dL Procalcitonin 3.42 H (0.02-0.09) ng/mL Microbiology - Last 24 Hours (Table) 10/19/19 16:56 Blood Culture - Preliminary Blood No Growth after 72 hours Assessment and Plan Plan: Assessment and Recommendations: 1. Febrile Illness:improved 2. Leukocytosis: - Appears reactive with mostly comprised of neutrophils - Related to number 1 3. Normocytic Hypochromic Anemia: - GI Status post endoscopy no active bleed, mild gastritis, left diverticulosis - Ferritin increased, no obvious iron deficiency, therefore must rule out other etiologies: Immunofixation, NILDA, RF, LDH, Hapto, sent 4. Weakness: - PT/OT evalu and assistace at home at request of patient and family Patient educated on avoiding ibuprofen, aspirin, and high doses of caffeine. especially on empty stomach. Patient will follow-up in 3-4 weeks to followup on pending labs, and possible BMB if not improved after treatment of infection Physician attest: I have completed the full history and physical and agree with above dictation, dictated as a scribe
--- NOTE | 2019-10-23 21:10 | P.DS ---
Providers Date of admission: 10/19/19 17:11 Expected date of discharge: 10/23/19 Attending physician: Margarita Carrasquillo MD Consults: 10/19/19 16:40 Consult Physician Routine Consulting Provider: Bennett Buck Consult Reason/Comments: gi bleed, anemia Do you want consulting provider notified?: Yes 10/19/19 18:55 Consult Physician Routine Consulting Provider: Malachi Graves Consult Reason/Comments: leukocytosis Do you want consulting provider notified?: Yes 10/22/19 14:02 Consult Physician Routine Consulting Provider: Anna Lazo Consult Reason/Comments: fever and leukocytosis Do you want consulting provider notified?: Yes Primary care physician: Stated None Hospital Course: Discharge Diagnosis: Summary of care as patient left AMA Fever of unknown origin SIRS Leukocytosis Anemia requiring transfusion. Thrombocytosis Hyponatremia Hospital Course: Patient is a 79-year-old female withhypertension who presented to the ER for abnormal lab work.she underwent eye surgery a couple of months ago and was told that her blood pressure was high and that she didn't see a doctor. Patient has not seen a doctor in 50 years so she went to urgent care and had blood work done 3 months ago which was reportedly normal. Apparently the patient went back to urgent care the day prior to admission to have her blood pressure rechecked after starting her lisinopril due to decreased appetite. At that point in time she was found have an elevated white blood cell count and a low hemoglobin and was therefore sent to the emergency department.on arrival to the ER here her initial vital signs were within normal limits. Initial lab analysis showed a white blood cell count 21.2, hemoglobin 8.9, platelets 852, sodium 131, plasma lactic acid 3.8, alkaline phosphatase 181, total protein 6.2, albumin 2.9, urinalysis showed 11 white blood cell count, fecal occult blood was positive. CXR showed no acute process. She was subsequently admitted for SIRS, lactic acidosis, and anemia with positive fecal occult blood. GI was consulted.She started spiking fevers after admission. Hematology was consulted for her abnorm al blood work, and on 10/21 infectious disease was consulted. She had a drop in Hemoglobin requiring 1 unit pRBC on 10/20. During her hospital stay she underwent an EGD and colonoscopy on 10/20 which showed mild gastritis and small hiatal hernia. Colonoscopy demonstrated moderate left-sided diverticulosis with low-grade internal hemorrhoids. GI recommended video capsule endoscopy to evaluate for blood loss. This was being completed. She underwent an extensive blood work analysis with Hematology. She was found to have normal B12, methylmalonic acid, folic acid, LDH. Her ferritin was elevated. Intact PTH was elevated. Gammaglobulins were normal. She was found have an elevated free Coleman and lambda but serum electrophoresis demonstrated no monoclonal spike. Rheumatoid factor and NILDA were negative. Infectious disease had recommended adjusting antibiotics to Unasyn as well as checking a CT abdomen and pelvis. On the morning of 10/22 and patient decided she wanted to check herself out of hospitals we had not found definitive cause of her fevers and elevated white blood cell count. I ugerd her to stay as we were evaluating her for infections and cancer and had not yet found a casue of her abnormal blood work. I explained that leaving now could worsen her sympoms and lead to . The patient wanted to leave against medical advice despite my warnings. She left [facility] on 10/23/2019 Patient seen and examined at bedside.Denies any nausea, vomiting, shortness of breath, chest pain, diarrhea, problems urinating Vital signs reviewed and stable. General: non toxic, no distress, appears at stated age, frail Derm: warm, dry Head: atraumatic, normocephalic, symmetric Eyes: EOMI, no lid lag, anicteric sclera Mouth: no lip lesion, mucus membranes dry Cardiovascular: S1S2 reg, no murmur, positive posterior tibial pulse bilateral, Lungs: Decrease bs bilateral, no rhonchi, no rales , no accessory muscle use Abdominal: soft, nontender to palpation, no guarding, no appreciable organomegaly Ext: no gross muscle atrophy, no edema, no contractures Neuro: CN II-XI grossly intact, no focal neuro deficits Psych: Alert, oriented, appropriate affect A total of 25 minutes of time were spent preparing this complex discharge summary. Plan - Discharge Summary Discharge Rx Participant: No New Discharge Prescriptions: New Amoxicillin/Potassium Clav [Augmentin 875-125 Tablet] 1 tab PO BID 7 Days #14 tab No Action lisinopriL 20 mg PO DAILY Multivitamins, Thera [Multivitamin (formulary)] 1 tab PO DAILY Metoprolol Tartrate 25 mg PO BID hydroCHLOROthiazide 25 mg PO DAILY Discharge Medication List Metoprolol Tartrate 25 mg PO BID 10/19/19 [History] Multivitamins, Thera [Multivitamin (formulary)] 1 tab PO DAILY 10/19/19 [History] hydroCHLOROthiazide 25 mg PO DAILY 10/19/19 [History] lisinopriL 20 mg PO DAILY 10/19/19 [History] Amoxicillin/Potassium Clav [Augmentin 875-125 Tablet] 1 tab PO BID 7 Days #14 tab 10/23/19 [Rx] Follow up Appointment(s)/Referral(s): None,Stated [Primary Care Provider] - 1-2 days Discharge Disposition: Left Against Medical Advice
== END 2019-10-23 12:20 | disposition left against medical advice (07) | DRG 812 ==
LOC: EC 13:54 → 3SCARD 17:11
PROVIDERS: ADMIT Internal Medicine; ATTEND Internal Medicine
PROC: 0DB78ZX Excision of Stomach, Pylorus, Via Natural or Artificial Opening Endoscopic, Diagnostic (ICD-10-PCS; principal; 2019-10-21 08:30)
PROC: 0DB98ZX Excision of Duodenum, Via Natural or Artificial Opening Endoscopic, Diagnostic (ICD-10-PCS; principal; 2019-10-21 08:30)
PROC: 0DJD8ZZ Inspection of Lower Intestinal Tract, Via Natural or Artificial Opening Endoscopic (ICD-10-PCS; principal; 2019-10-21 08:30)
PROC: 0DB68ZX Excision of Stomach, Via Natural or Artificial Opening Endoscopic, Diagnostic (ICD-10-PCS; principal; 2019-10-21 08:30)
PROC: 30233N1 Transfusion of Nonautologous Red Blood Cells into Peripheral Vein, Percutaneous Approach (ICD-10-PCS; 2019-10-21 08:30)
DX: D50.9 Iron deficiency anemia, unspecified (principal); E87.1 Hypo-osmolality and hyponatremia; E87.2 Acidosis; K92.2 Gastrointestinal hemorrhage, unspecified; R65.10 Systemic inflammatory response syndrome (SIRS) of non-infectious origin without acute organ dysfunction; D63.8 Anemia in other chronic diseases classified elsewhere; E87.8 Other disorders of electrolyte and fluid balance, not elsewhere classified; R50.9 Fever, unspecified; D72.829 Elevated white blood cell count, unspecified; E86.0 Dehydration; Z20.828 Contact with and (suspected) exposure to other viral communicable diseases; E87.6 Hypokalemia; I10 Essential (primary) hypertension; K29.70 Gastritis, unspecified, without bleeding; K44.9 Diaphragmatic hernia without obstruction or gangrene; K57.30 Diverticulosis of large intestine without perforation or abscess without bleeding; K64.8 Other hemorrhoids; R82.90 Unspecified abnormal findings in urine; Z79.899 Other long term (current) drug therapy; Z82.49 Family history of ischemic heart disease and other diseases of the circulatory system
CPT/HCPCS: 36415; 43239; 45378; 71046; 80048; 80053; 81001; 82150; 82272; 82607; 82728; 82746; 82784; 83010; 83540; 83550; 83605; 83615; 83690; 83735; 83883; 83921; 83970; 84100; 84145; 84165; 84443; 84550; 85025; 85045; 85652; 86038; 86140; 86334; 86431; 86850; 86900; 86901; 86920; 87040; 87086; 88305; 91110; 96360; 96361; 99284